=== PATIENT | female | born 1985 | race Caucasian/White ===

== ENCOUNTER 2019-12-30 10:44 | Outpatient (CLI) | payer OTHER, SELFPAY ==
[2019-12-30 10:57] LABS: Basophils Absolute Auto 0.07 K/mm3 (0.00-0.10); Basophils Percent Auto 0.6 % (0.0-1.0); Eosinophils Absolute Auto 0.16 K/mm3 (0.02-0.50); Eosinophils Percent Auto 1.4 % (1.0-6.0); Hemoglobin 12.6 g/dL (12.0-15.0); Immature Granulocyte Absolute 0.06 K/mm3 (0.00-0.00); Immature Granulocyte Percent A 0.5 % (0.0-0.0); Lymphocytes Absolute Auto 3.33 K/mm3 (1.10-4.50); Lymphocytes Percent Auto 29.6 % (18.0-42.0); Mean Corpuscular HGB Conc 32.3 g/dL (32.0-36.0); Mean Corpuscular Hemoglobin 26.7 pg (27.0-31.0); Mean Corpuscular Volume 82.6 fL (78.0-102.0); Mean Platelet Volume 8.7 fl (9.2-11.8); Monocytes Absolute Auto 0.42 K/mm3 (0.10-0.90); Monocytes Percent Auto 3.7 % (2.0-11.0); Neutrophils Absolute Auto 7.2 K/mm3 (1.7-7.2); Neutrophils Percent Auto 64.2 % (50.0-70.0); Platelet Count Result 348 K/mm3 (150-420); Red Blood Count 4.72 M/mm3 (4.20-5.40); Red Cell Distribution Width 13.2 % (11.6-14.4); White Blood Count 11.3 K/mm3 (4.8-10.8)
[2019-12-30 11:27] LABS: Add Urine Microscopic? YES; Appearance Urine Clear (Clear); Bilirubin Urine Negative (Negative); Blood Urine Negative (Negative); Color Urine Yellow (Yellow); Glucose Urine UA Negative (Negative); Ketones Urine Negative (Negative); Leukocyte Esterase Ur Negative (Negative); Nitrate Urine Negative (Negative); Protein Urine Negative (Negative); Specific Grav Ur 1.015 (1.010-1.020); pH Urine 8.5 (5.0-8.0)
[2019-12-30 11:44] LABS: RBC Urine 0-2 /hpf (0-2)
[2019-12-30 11:45] LABS: Bacteria Urine 4+ /hpf; Squamous Epithelial Cell Urine Few /hpf (Few)
[2019-12-30 11:50] LABS: Alanine Aminotransferase 35 U/L (14-59); Albumin Level 3.7 g/dL (3.4-5.0); Alkaline Phosphatase 90 U/L (46-116); Anion Gap 8 mmol/L (8-16); Aspartate Amino Transferase 14 U/L (15-37); Bilirubin,Total 0.4 mg/dL (0.00-1.00); Blood Urea Nitrogen 13 mg/dL (7-18); Calcium 8.9 mg/dL (8.5-10.1); Carbon Dioxide 27 mmol/L (21-32); Chloride 104 mmol/L (98-108); Cholesterol 221 mg/dL (0-200); Estimated Glomerular Filt Rate > 60; Glucose 114 mg/dL (70-99); HDL Direct 60 mg/dL (40-60); LDL Cholesterol Calculated 148 mg/dL (<130); Osmolality Calculated 289 mOsm/kg (285-295); Potassium 4.3 mmol/L (3.5-5.1); Sodium 139 mmol/L (136-145); Thyroid Stimulating Hormone 0.92 uIU/mL (0.36-3.74); Total Protein 7.1 g/dL (6.4-8.2); Triglycerides 67 mg/dL (0-150)
[2019-12-30 16:39] LABS: Hemoglobin A1C 5.2 % (<5.7)
== END 2019-12-30 10:45 | disposition home or self-care (01) ==
LOC: CHSLAB 10:46
PROVIDERS: PCP Internal Medicine; Visit Provider Internal Medicine
DX: E78.5 Hyperlipidemia, unspecified (principal); I10 Essential (primary) hypertension; F32.9 Major depressive disorder, single episode, unspecified; R73.01 Impaired fasting glucose
CPT/HCPCS: 36415; 80053; 80061; 81001; 83036; 84443; 85025

== ENCOUNTER 2020-01-12 10:28 | Outpatient (CLI) | payer OTHER, SELFPAY ==
--- NOTE | ~2020-01-12 | XR_ITS ---
XR foot RT min 3V DATE: 01/12/2020 10:56 INDICATION: Right first metatarsophalangeal joint pain, medial foot pain. No known injury. TECHNIQUE: 4 views COMPARISON: None FINDINGS: Mild plantar calcaneal enthesopathy. No fracture or dislocation, periosteal reaction or bone destruction. Mild hallux valgus and bunion deformity. No fracture or dislocation, periosteal reaction or bone destruction. IMPRESSION: Mild plantar calcaneal enthesopathy Reviewed, dictated and finalized at location A.
[2020-01-12 10:40] LABS: Basophils Absolute Auto 0.05 K/mm3 (0.00-0.10); Basophils Percent Auto 0.6 % (0.0-1.0); Eosinophils Absolute Auto 0.19 K/mm3 (0.02-0.50); Eosinophils Percent Auto 2.4 % (1.0-6.0); Hematocrit 38.9 % (35.0-49.0); Hemoglobin 12.7 g/dL (12.0-15.0); Immature Granulocyte Absolute 0.04 K/mm3 (0.00-0.00); Immature Granulocyte Percent A 0.5 % (0.0-0.0); Lymphocytes Absolute Auto 3.09 K/mm3 (1.10-4.50); Lymphocytes Percent Auto 39.6 % (18.0-42.0); Mean Corpuscular HGB Conc 32.6 g/dL (32.0-36.0); Mean Corpuscular Hemoglobin 26.7 pg (27.0-31.0); Mean Corpuscular Volume 81.9 fL (78.0-102.0); Mean Platelet Volume 8.5 fl (9.2-11.8); Monocytes Absolute Auto 0.35 K/mm3 (0.10-0.90); Monocytes Percent Auto 4.5 % (2.0-11.0); Neutrophils Absolute Auto 4.1 K/mm3 (1.7-7.2); Neutrophils Percent Auto 52.4 % (50.0-70.0); Platelet Count Result 320 K/mm3 (150-420); Red Blood Count 4.75 M/mm3 (4.20-5.40); Red Cell Distribution Width 13.2 % (11.6-14.4); White Blood Count 7.8 K/mm3 (4.8-10.8)
[2020-01-12 11:28] LABS: CRP 0.8 mg/dL (0.0-0.9); Uric Acid 3.2 mg/dL (2.6-6.0)
== END 2020-01-12 10:29 | disposition home or self-care (01) ==
PROVIDERS: PCP Internal Medicine; Visit Provider Internal Medicine
DX: M25.571 Pain in right ankle and joints of right foot (principal)
CPT/HCPCS: 36415; 73630; 84550; 85025; 86140

== ENCOUNTER 2020-03-06 10:16 | Outpatient (CLI) | payer OTHER, SELFPAY ==
[2020-03-06 10:30] LABS: Basophils Absolute Auto 0.08 K/mm3 (0.00-0.10); Basophils Percent Auto 0.9 % (0.0-1.0); Eosinophils Percent Auto 2.2 % (1.0-6.0); Hematocrit 39.4 % (35.0-49.0); Hemoglobin 12.7 g/dL (12.0-15.0); Immature Granulocyte Absolute 0.03 K/mm3 (0.00-0.00); Immature Granulocyte Percent A 0.3 % (0.0-0.0); Lymphocytes Absolute Auto 3.39 K/mm3 (1.10-4.50); Lymphocytes Percent Auto 36.5 % (18.0-42.0); Mean Corpuscular HGB Conc 32.2 g/dL (32.0-36.0); Mean Corpuscular Hemoglobin 26.5 pg (27.0-31.0); Mean Corpuscular Volume 82.3 fL (78.0-102.0); Mean Platelet Volume 8.5 fl (9.2-11.8); Monocytes Absolute Auto 0.41 K/mm3 (0.10-0.90); Monocytes Percent Auto 4.4 % (2.0-11.0); Neutrophils Absolute Auto 5.2 K/mm3 (1.7-7.2); Neutrophils Percent Auto 55.7 % (50.0-70.0); Platelet Count Result 346 K/mm3 (150-420); Red Blood Count 4.79 M/mm3 (4.20-5.40); White Blood Count 9.3 K/mm3 (4.8-10.8)
[2020-03-06 11:48] LABS: Alanine Aminotransferase 32 U/L (14-59); Albumin Level 3.7 g/dL (3.4-5.0); Alkaline Phosphatase 99 U/L (46-116); Anion Gap 11 mmol/L (8-16); Aspartate Amino Transferase 13 U/L (15-37); Bilirubin,Total 0.3 mg/dL (0.00-1.00); Blood Urea Nitrogen 16 mg/dL (7-18); Calcium 9.1 mg/dL (8.5-10.1); Carbon Dioxide 27 mmol/L (21-32); Chloride 105 mmol/L (98-108); Estimated Glomerular Filt Rate > 60; Glucose 95 mg/dL (70-99); Osmolality Calculated 297 mOsm/kg (285-295); Potassium 4.3 mmol/L (3.5-5.1); Sodium 143 mmol/L (136-145); Total Protein 7.3 g/dL (6.4-8.2)
== END 2020-03-06 10:17 | disposition home or self-care (01) ==
LOC: CHSLAB 10:17
PROVIDERS: PCP Internal Medicine; Visit Provider Internal Medicine
DX: Z01.818 Encounter for other preprocedural examination (principal)
CPT/HCPCS: 36415; 80053; 85025

== ENCOUNTER 2020-07-05 22:47 | Inpatient (IN) | payer OTHER, SELFPAY ==
--- NOTE | ~2020-07-05 | XR_ITS ---
EXAMINATION: XR chest 1V portable DATE: 07/05/2020 23:20 INDICATION: Fever and cough. TECHNIQUE: A single frontal view of the chest was obtained. COMPARISON: Chest 2 views 10/25/2016 FINDINGS: There are airspace opacities in right mid lung zone and left lower lung zone. No pleural ef fusion or pneumothorax. The heart size is normal. IMPRESSION: 1. Airspace opacities in right mid lung zone and left lower lung zone, consistent with pneumonia. Reviewed, dictated and finalized at location A. IMPRESSION: 1. Airspace opacities in right mid lung zone and left lower lung zone, consiste nt with pneumonia.
--- NOTE | ~2020-07-05 | CT_ITS ---
EXAMINATION: CTA chest PE protocol DATE: 07/06/2020 01:44 INDICATION: Dyspnea. Positive d-dimer. COVID positive. TECHNIQUE: Computed tomography (CT) pulmonary angiogram of the chest was performed with 100 mL Omnipa que-350 intravenous contrast. Additional 3D reconstructions utilizing coronal maximum intensity proje ction (MIP) were performed. Automated exposure control and iterative reconstruction technique were em ployed. The dose-length product was 652.18 mGy-cm. COMPARISON: None FINDINGS: Good contrast opacification of the pulmonary arteries. There is mild streak artifact from dense contr ast in the superior vena cava and right atrium. Minimal scattered respiratory motion artifact which d oes not limit evaluation. No pulmonary embolism. Region of consolidation with air bronchograms in the right upper lobe. Additional less confluent patchy airspace opacities in the right upper lobe, lingu la and left lower lobe. Calcified nodule at the lingula consistent with old granulomatous disease. No pulmonary edema or pleural effusion. Heart size is normal. No pericardial effusion. Thoracic aorta i s normal in caliber with no dissection. Likely reactive mild right hilar and mediastinal lymphadenopa thy. Small sliding-type hiatal hernia. Mild thoracic dextrocurvature with minimal spondylosis. IMPRESSION: 1. No pulmonary embolism. 2. Bilateral multifocal pneumonia, most prominent in the right upper lobe. 3. Small sliding-type hiatal hernia. Reviewed, dictated and finalized at location A.
--- NOTE | 2020-07-05 23:00 | ED.SOB ---
HPI - SOB/Dyspnea General Chief Complaint: Headache Stated Complaint: covid+, trouble breathing, headache Time Seen by Provider: 07/05/20 23:01 Source: patient Mode of arrival: ambulatory Limitations: no limitations History of Present Illness HPI Narrative: 34-year-old woman comes in today complaining of but cough and feeling horribly starting 6 days ago and a fever starting 4 days ago. She has got progressively worse shortness of breath and this evening at home her sats were 88%. She was tested 2 days ago for COVID by her primary care doctor and is positive by PCR. She complains of poor intake, poor appetite, headache, body aches and fatigue. She denies vomiting or diarrhea, chest pain, abdominal pain, leg swelling or calf tenderness. She has had the influenza vaccine this season however she has not had the COVID vaccine. She denies history of smoking or lung disease. MD elicited complaint: shortness of breath and cough Onset (ago): day(s) (6) Timing: constant and progressively worsening Severity: moderate Relieving factors: nothing Associated symptoms: fever and cough Treatment prior to arrival: none Related Data Home oxygen amount: none Home Medications Medication Instructions Recorded Confirmed citalopram 40 mg PO HS 07/05/20 07/05/20 methylprednisolone See Rx Instructions .ROUTE .COMPLEX 07/05/20 07/05/20 verapamil 240 mg PO HS 07/05/20 07/05/20 Allergies Allergy/AdvReac Type Severity Reaction Status Date / Time Sulfa (Sulfonamide Allergy Unknown Verified 07/05/20 23:29 Antibiotics) Review of Systems Constitutional: Constitutional: Denies chills, Reports fatigue and Reports fever(s) Eyes: Eyes: Denies change in vision and Denies photophobia ENT: Denies dysphagia, Denies nasal congestion and Denies sore throat Cardiovascular: Cardiovascular: Denies chest pain and Denies radiating jaw, neck or arm pain Respiratory: Respiratory: Reports chest congestion, Reports cough, Reports dyspnea and Denies wheezing Gastrointestinal: Gastrointestinal: Denies abdominal pain, Denies diarrhea, Denies nausea and Denies vomiting Musculoskeletal: Musculoskeletal: Denies arthralgias and Denies joint swelling Integumentary/Breasts: Skin/Breast: Denies pruritus, Denies erythema and Denies rash Neurologic: Denies vertigo, Denies dizziness, Denies syncope, Denies focal weakness and Denies numbness Hematologic/Lymphatic: Hematologic/Lymphatic: Denies easy bleeding and Denies easy bruising Allergic/Immunologic: Allergic/Immunologic: Denies lip swelling and Denies throat swelling FOR[facility]LY [facility] Past Medical History Medical History (Updated 07/05/20 @ 23:26 by Tanner Amanda MD) Anxiety Surgical History Surgical History (Updated 07/05/20 @ 23:24 by Tanner Amanda MD) H/O tubal ligation History of bunionectomy bilateral History of carpal tunnel surgery bilateral Hx of cholecystectomy Social History Social History (Updated 07/05/20 @ 23:24 by Tanner Amanda MD) Smoking status: Never smoker Alcohol intake: never Substance use: never Living arrangements: with family Gender identity (if verbalized by the patient): Female Exam Const: General: healthy appearing and alert Nutritional Appearance: obese Orientation/consciousness: patient oriented x3 Limitations: no limitations Other: mild acute distress. HENMT: Head: normal to inspection Ears: external ears normal, TM's normal bilaterally and EAC's normal General nose exam: Normal nares present Face and sinus: normal facial exam Mouth: Yes moist mucous membranes Throat: posterior oropharynx normal Eyes: Conjunctivae: conjunctivae normal Pupils: Equal, round and reactive pupils present EOM: EOMs intact bilaterally Resp: Effort & Inspection: not labored, no retractions, tachypneic ( Mildly) and no use of accessory muscles Auscultation: no rales, no rhonchi and wheezes ( Scattered bilateral expiratory) Cardio: Rate: tachycardic Rhyth
--- NOTE | 2020-07-05 23:09 | ECG_ITS ---
Measurements Intervals [place] Rate: 105 P: 24 NM: 157 QRS: 41 QRSD: 88 T: 8 QT: 331 QTc: 438 Interpretive Statements SINUS TACHYCARDIA MINIMAL Q WAVES- INFERIOR LEADS BORDERLINE ST-T WAVE ABNORMALITY- ANTEROLAT/INF LEADS BASELINE WANDER- I, V4-V6 ABNORMAL ECG Electronically Signed On 07-06-2020 7:21:37 CDT by Winston Sanchez D.O.
[2020-07-05 23:10] VITALS: BP 148/87; PULSE 122; RESP 22; TEMP 38.2; O2SAT 94
[2020-07-05 23:23] VITALS: PULSE 107; RESP 26; O2SAT 94
[2020-07-05] MEDS: SODIUM CHLORIDE 0.9% IV 1,000 ML 999 ML IV CONT (23:26)
[2020-07-05] MEDS: ALBUTEROL SULFATE (*SP) INHALER 4 PUFF INHALATION (23:29)
[2020-07-05 23:30] VITALS: PULSE 107; RESP 22; O2SAT 93
[2020-07-05 23:32] VITALS: PULSE 107; RESP 94; O2SAT 25
[2020-07-06] VITALS (13 sets, daily range): BP systolic 106–128; BP diastolic 65–79; PULSE 67–96; RESP 18–22; TEMP 36.1–36.6; O2SAT 87–98; BMI 39.7
[2020-07-06 00:18] LABS: Hematocrit 36.6 % (35.0-49.0); Mean Corpuscular HGB Conc 32.8 g/dL (32.0-36.0); Mean Corpuscular Hemoglobin 26.5 pg (27.0-31.0); Mean Platelet Volume 9.2 fl (9.2-11.8); Platelet Count Result 174 K/mm3 (150-420); Red Blood Count 4.52 M/mm3 (4.20-5.40); Red Cell Distribution Width 13.1 % (11.6-14.4); White Blood Count 2.5 K/mm3 (4.8-10.8)
[2020-07-06 00:27] LABS: INR 1.1; Partial Thromboplastin Time 29.5 SEC (23.90-30.70); Prothrombin Time 11.7 Seconds (9.50-12.10)
[2020-07-06 00:30] LABS: Lactic Acid Reflex 1.2 mmol/L (0.4-2.0)
[2020-07-06 00:40] LABS: Alanine Aminotransferase 36 U/L (14-59); Albumin Level 3.3 g/dL (3.4-5.0); Alkaline Phosphatase 78 U/L (46-116); Anion Gap 11 mmol/L (8-16); Aspartate Amino Transferase 24 U/L (15-37); Bilirubin,Total 0.3 mg/dL (0.00-1.00); Blood Urea Nitrogen 15 mg/dL (7-18); Calcium 7.8 mg/dL (8.5-10.1); Carbon Dioxide 23 mmol/L (21-32); Chloride 98 mmol/L (98-108); Estimated CRCL calculation 85 ml/min; Estimated Glomerular Filt Rate > 60; Glucose 182 mg/dL (70-99); Osmolality Calculated 279 mOsm/kg (285-295); Potassium 3.3 mmol/L (3.5-5.1); Sodium 132 mmol/L (136-145); Total Protein 7.3 g/dL (6.4-8.2)
[2020-07-06] MEDS: ACETAMINOPHEN 500 MG TABLET 1000 MG PO (00:44)
[2020-07-06 00:59] LABS: D Dimer 0.87 mg/L (0.19-0.50)
[2020-07-06 01:00] LABS: Band Neutrophils Percent 0 % (0-6); Basophils Absolute Manual 0.02 K/mm3 (0-0.1); Basophils Percent Manual 1 % (0-1); Eosinophils Percent Manual 0 % (1-6); Lymphocytes Percent Manual 12 % (18-44); Monocytes Absolute Manual 0.02 K/mm3 (0.1-0.90); Monocytes Percent Manual 1 % (3-9); Neutrophils Absolute Manual 2.15 K/mm3 (1.7-7.2); Neutrophils Percent Manual 86 % (46-73); Total Cells Counted 100
[2020-07-06 01:01] LABS: Anisocytosis 1+ (NORMAL); Platelet Estimate Adequate (Adequate); Polychromasia 1+ (NORMAL)
[2020-07-06 01:02] LABS: Microcytosis 1+ (NORMAL)
[2020-07-06 01:03] LABS: Influenza Control Valid (Valid)
[2020-07-06 01:25] LABS: Pregnancy On Board Control Positive; Urine Pregnancy Test Negative
[2020-07-06] MEDS: REMDESIVIR 200 MG/NS 250 ML 200 MG/250 ML BAG 250 MG IVPB (03:42)
[2020-07-06] MEDS: IBUPROFEN 600 MG TABLET PO ×2 (05:34→14:22)
[2020-07-06] MEDS: ALBUTEROL SULFATE (*SP) INHALER 4 PUFF INHALATION ×4 (05:35→21:36)
[2020-07-06] MEDS: DEXAMETHASONE SOD PHOS INJ 4 MG/ML VIAL 6 MG IV PUSH (08:19)
[2020-07-06] MEDS: ENOXAPARIN 40 MG/0.4 ML SYRINGE SUB-Q (08:19)
[2020-07-06 09:28] LABS: Hematocrit 35.6 % (35.0-49.0); Hemoglobin 11.7 g/dL (12.0-15.0); Mean Corpuscular HGB Conc 32.9 g/dL (32.0-36.0); Mean Corpuscular Hemoglobin 26.5 pg (27.0-31.0); Mean Corpuscular Volume 80.7 fL (78.0-102.0); Mean Platelet Volume 9.1 fl (9.2-11.8); Platelet Count Result 172 K/mm3 (150-420); Red Blood Count 4.41 M/mm3 (4.20-5.40); Red Cell Distribution Width 13.1 % (11.6-14.4); White Blood Count 2.2 K/mm3 (4.8-10.8)
[2020-07-06 09:46] LABS: Alanine Aminotransferase 31 U/L (14-59); Albumin Level 3.1 g/dL (3.4-5.0); Alkaline Phosphatase 71 U/L (46-116); Anion Gap 10 mmol/L (8-16); Aspartate Amino Transferase 20 U/L (15-37); Bilirubin,Total 0.2 mg/dL (0.00-1.00); Blood Urea Nitrogen 11 mg/dL (7-18); Calcium 7.8 mg/dL (8.5-10.1); Carbon Dioxide 24 mmol/L (21-32); Chloride 102 mmol/L (98-108); Estimated CRCL calculation 93 ml/min; Estimated Glomerular Filt Rate > 60; Glucose 204 mg/dL (70-99); Osmolality Calculated 287 mOsm/kg (285-295); Potassium 3.9 mmol/L (3.5-5.1); Sodium 136 mmol/L (136-145)
[2020-07-06 09:52] LABS: Total Cells Counted 100
[2020-07-06 09:53] LABS: Band Neutrophils Percent 0 % (0-6); Basophils Percent Manual 0 % (0-1); Eosinophils Percent Manual 0 % (1-6); Lymphocytes Absolute Manual 0.39 K/mm3 (1.1-4.5); Lymphocytes Percent Manual 18 % (18-44); Monocytes Absolute Manual 0.02 K/mm3 (0.1-0.90); Monocytes Percent Manual 1 % (3-9); Neutrophils Absolute Manual 1.78 K/mm3 (1.7-7.2); Neutrophils Percent Manual 81 % (46-73)
[2020-07-06 09:54] LABS: Platelet Estimate Adequate (Adequate)
--- NOTE | 2020-07-06 13:22 | PM.IMHP ---
H&P: HPI History of Present Illness Date/Time: 07/06/20 13:22 Pt states her breathing feels a little better and indicated that her Oxygen was turned down to 1 L/min at about 0930 today and after lunch she is now off of her supplemental oxygen, room air with SpO2 at 95%. Pt states her [place] is almost gone. Pt does not complain of any pain or concerns at this time. Chief Complaint: Fever, Cough, Positive COVID Review of Systems Constitutional: Constitutional: Reports no additional constitutional complaints, Denies chills, Denies fatigue and Denies fever(s) ENT: Reports system reviewed and no additional complaints, except as documented Cardiovascular: Cardiovascular: Reports no additional cardiovascular complaints, Denies chest pain, Denies chest pain at rest and Denies chest pain with activity Respiratory: Respiratory: Reports no additional respiratory complaints and Denies dyspnea Gastrointestinal: Gastrointestinal: Reports no additional gastrointestinal complaints Genitourinary: Genitourinary: Reports no additional female genitourinary complaints Musculoskeletal: Musculoskeletal: Reports no additional musculoskeletal complaints Neurologic: Reports system reviewed and no additional complaints, except as documented Psychiatric: Comments: Admits to Anxiety [facility] Past Medical History Medical History (Updated 07/06/20 @ 13:47 by MICHAEL Laboy) Anxiety Hypertension Surgical History Surgical History H/O tubal ligation History of bunionectomy bilateral History of carpal tunnel surgery bilateral Hx of cholecystectomy Family History Family History (Updated 07/06/20 @ 13:40 by MICHAEL Laboy) Father Acute myocardial infarction Mother COPD (chronic obstructive pulmonary disease) Social History Social History Smoking status: Never smoker Alcohol intake: unknown Substance use: never Living arrangements: with family Gender identity (if verbalized by the patient): Female Spiritual care concerns: No Meds Home Medications and Allergies Home Medications Medication Instructions Recorded Confirmed Type citalopram 40 mg PO HS 07/05/20 07/05/20 History methylprednisolone See Rx Instructions .ROUTE .COMPLEX 07/05/20 07/05/20 History verapamil 240 mg PO HS 07/05/20 07/05/20 History Allergies Allergy/AdvReac Type Severity Reaction Status Date / Time Sulfa (Sulfonamide Allergy Unknown Verified 07/05/20 23:29 Antibiotics) Vital Signs Vital Signs - 24 hr 07/05/20 23:10 07/05/20 23:23 07/05/20 23:30 Temperature 100.8 F H Pulse Rate 122 H 107 H 107 H Respiratory Rate 22 H 26 H 22 H Blood Pressure 148/87 H Pulse Oximetry 94 94 93 07/05/20 23:32 07/06/20 00:30 07/06/20 01:00 Temperature Pulse Rate 107 H 96 96 Respiratory Rate 94 H 20 20 Blood Pressure 126/76 128/78 Pulse Oximetry 25 L 98 96 07/06/20 02:00 07/06/20 02:20 07/06/20 02:47 Temperature Pulse Rate 85 82 82 Respiratory Rate 22 H 22 H 20 Blood Pressure 117/71 122/68 Pulse Oximetry 87 L 97 98 07/06/20 03:05 07/06/20 03:20 07/06/20 08:30 Temperature 97.9 F 97.1 F L Pulse Rate 83 67 Respiratory Rate 22 H 18 Blood Pressure 127/77 114/70 Pulse Oximetry 96 96 95 07/06/20 09:20 07/06/20 10:20 Temperature Pulse Rate Respiratory Rate Blood Pressure Pulse Oximetry 94 92 Exam Const: General: cooperative, comfortable and no acute distress Nutritional Appearance: overweight HENMT: Head: normal to inspection and atraumatic Ears: hearing grossly normal bilaterally General nose exam: Normal external nose present Neck: Neck: normal visual inspection and no JVD Resp: Effort & Inspection: normal respiratory effort, Actively coughing (rare) and not labored Auscultation: clear to auscultation bilaterally Cardio: Rate: regular rate Heart sounds: S1 normal
[2020-07-06] MEDS: LORazepam (*CRX) 0.5 MG TABLET PO (16:30)
[2020-07-07] VITALS (8 sets, daily range): BP systolic 116–146; BP diastolic 60–91; PULSE 72–94; RESP 18–20; TEMP 36.2–38.9; O2SAT 93–96
[2020-07-07] MEDS: IBUPROFEN 600 MG TABLET PO ×3 (00:20→18:36)
--- NOTE | 2020-07-07 00:37 | PC.NURSE ---
pt was tearful and wants to go home, comforted pt, gave pain medication see MAR, belongings and call light within reach, denies any other needs, tele and cont pulse ox on with alarms
--- NOTE | 2020-07-07 05:00 | PC.NURSE ---
pt refused to allow labs to be drawn at this time
[2020-07-07] MEDS: REMDESIVIR 100 MG/NS 250 ML 100 MG/250 ML BAG 250 MG IVPB (05:01)
[2020-07-07] MEDS: ALBUTEROL SULFATE (*SP) INHALER 4 PUFF INHALATION ×4 (06:11→21:26)
[2020-07-07 08:52] LABS: Hematocrit 36.3 % (35.0-49.0); Hemoglobin 11.7 g/dL (12.0-15.0); Mean Corpuscular HGB Conc 32.2 g/dL (32.0-36.0); Mean Corpuscular Hemoglobin 26.4 pg (27.0-31.0); Mean Corpuscular Volume 81.8 fL (78.0-102.0); Mean Platelet Volume 10.3 fl (9.2-11.8); Platelet Count Result 225 K/mm3 (150-420); Red Blood Count 4.44 M/mm3 (4.20-5.40); Red Cell Distribution Width 13.2 % (11.6-14.4); White Blood Count 5.9 K/mm3 (4.8-10.8)
[2020-07-07 09:14] LABS: Anion Gap 8 mmol/L (8-16); Blood Urea Nitrogen 16 mg/dL (7-18); Carbon Dioxide 24 mmol/L (21-32); Chloride 100 mmol/L (98-108); Estimated CRCL calculation 96 ml/min; Estimated Glomerular Filt Rate > 60; Glucose 102 mg/dL (70-99); Osmolality Calculated 275 mOsm/kg (285-295); Sodium 132 mmol/L (136-145)
[2020-07-07 09:17] LABS: Alanine Aminotransferase 28 U/L (14-59)
[2020-07-07] MEDS: ENOXAPARIN 40 MG/0.4 ML SYRINGE SUB-Q (09:20)
[2020-07-07] MEDS: DEXAMETHASONE SOD PHOS INJ 4 MG/ML VIAL 6 MG IV PUSH (09:21)
--- NOTE | 2020-07-07 16:32 | PM.IMPN ---
Progress Note: A&P Assessment and Plan (1) COVID-19: Code(s): U07.1 - COVID-19 Status: Acute Assessment and Plan: 07/06/2020 Pt has Remdesivir, Decadron, Azithromycin, Rocephin, Albuterol, Lovenox, Cardiac and SpO2 monitoring, Supplemental Oxygen PRN, currently room air. 07/07/2020 Continue with above regimen, monitor Pt for SpO2, Respiratory status, [id number] O2 if needed, currently on room air (2) Pneumonia: Code(s): J18.9 - Pneumonia, unspecified organism Status: Acute Assessment and Plan: 07/06/2020 Azithromycin, supplemental O2 PRN, SpO2 monitoring, now room air with SpO2 95% 07/07/2020 Continue with Tx and monitoring, no productive cough (3) Elevated d-dimer: Code(s): R79.89 - Other specified abnormal findings of blood chemistry Status: Acute Assessment and Plan: 07/06/2020 CTA negative for PE, no calf pain or swelling in LE 07/07/2020 Lovenox 40 mg BID (4) Hypertension: Code(s): I10 - Essential (primary) hypertension Status: Acute Assessment and Plan: 07/06/2020 Continue Verapamill 07/07/2020 Continue as above, monitor VS, cardiac monitoring (5) Anxiety: Code(s): F41.9 - Anxiety disorder, unspecified Status: Acute Assessment and Plan: 07/06/2020 Pt states she was on Xanax, This was not reordered however if Pt does experience anxiety I will provide Pt with appropriate medication(s) 07/07/2020 PRN Ativan BID Subjective Date/time seen: 07/07/20 16:32 Pt states she is doing better. However, Pt is quite sad that she is still in the hospital and is wanting to go home. She states she is feeling a bit anxious regarding staying in the hospital. I spoke with her for a while about the regimen for COVID positive Pts and she did come around to agree to staying. now that she knows and understands what is needed with respect to her treatment she is amicable to staying in house for treatment. Pt has no complaints of CP, SOB, Abdominal issues. She does admit to some anxiety, missing her family, making sure her home medications are ordered such as Citalopram and Verapamil. Review of Systems Constitutional: Constitutional: Reports no additional constitutional complaints, Denies chills, Denies fever(s) and Reports headache(s) (states this is improving) ENT: Reports system reviewed and no additional complaints, except as documented, Reports Normal hearing present, Denies vertigo and Denies dizziness Cardiovascular: Cardiovascular: Reports no additional cardiovascular complaints, Denies chest pain, Denies chest pain at rest and Denies chest pain with activity Respiratory: Respiratory: Reports no additional respiratory complaints, Reports cough (occasional) and Denies dyspnea Gastrointestinal: Gastrointestinal: Reports no additional gastrointestinal complaints, Denies abdominal pain, Denies nausea and Denies vomiting Genitourinary: Genitourinary: Reports no additional female genitourinary complaints Musculoskeletal: Musculoskeletal: Reports no additional musculoskeletal complaints, Denies abnormal gait, Denies back pain, Denies muscle cramps and Denies muscle weakness Neurologic: Reports system reviewed and no additional complaints, except as documented, Reports Normal hearing present, Denies vertigo, Denies dizziness and Denies syncope Psychiatric: Psychiatric: Reports no additional psychiatric complaints and Reports anxiety (related to hospitalization and being away from family) Exam Const: General: cooperative, comfortable, no acute distress and anxious (regarding hospitalization and being away from family) Nutritional Appearance: overweight HENMT: Head: normal to inspection and atraumatic Ears: hearing grossly normal bilaterally Neck: Neck: normal visual inspection and no JVD Resp: Effort & Inspection: normal respiratory effort and Actively coughing (bronchospasms with deep breathing) Cardio: Rate: regular rate Heart sounds: S1 normal heart sound present, S2
[2020-07-07] MEDS: CITALOPRAM HYDROBROMIDE 20 MG TABLET 40 MG PO (21:04)
[2020-07-07] MEDS: VERAPAMIL HCL ER 120 MG TABLET 240 MG PO (21:05)
[2020-07-07] MEDS: MELATONIN 5 MG TABLET 10 MG PO (21:05)
[2020-07-07] MEDS: LORazepam (*CRX) 0.5 MG TABLET PO (21:06)
[2020-07-08] VITALS: BP 117/65; PULSE 67; RESP 18; TEMP 36.6; O2SAT 94
--- NOTE | 2020-07-08 02:05 | PC.NURSE ---
pt sleeping, call peoples in reach. respirations even and unlabored.
[2020-07-08 03:49] VITALS: BP 124/65; PULSE 64; RESP 18; TEMP 36.9; O2SAT 94
--- NOTE | 2020-07-08 04:15 | PC.NURSE ---
pt sleeping , left undisturbed. call peoples in reach.
[2020-07-08] MEDS: SODIUM CHLORIDE 0.9% IV 250 ML (04:41)
[2020-07-08] MEDS: REMDESIVIR 100 MG/NS 250 ML 100 MG/250 ML BAG 250 MG IVPB (04:41)
[2020-07-08 05:54] LABS: Alanine Aminotransferase 28 U/L (14-59); Estimated CRCL calculation 91 ml/min; Estimated Glomerular Filt Rate > 60
[2020-07-08 05:56] LABS: BNP < 5.0 pg/mL (0-100)
--- NOTE | 2020-07-08 06:19 | PC.NURSE ---
pt resting comfortably, states best restful night since arrival. call peoples in reach. pt up to bathroom independently.no complaints voiced related to rash to back.
--- NOTE | 2020-07-08 07:12 | PC.NURSE ---
report to dada jaffe
[2020-07-08 08:00] VITALS: BP 115/65; PULSE 64; PULSE 76; RESP 18; TEMP 36.5; O2SAT 94
[2020-07-08] MEDS: ENOXAPARIN 40 MG/0.4 ML SYRINGE SUB-Q (09:23)
[2020-07-08] MEDS: ALBUTEROL SULFATE (*SP) INHALER 4 PUFF INHALATION ×4 (09:26→20:30)
[2020-07-08] MEDS: DEXAMETHASONE SOD PHOS INJ 4 MG/ML VIAL 6 MG IV PUSH (09:26)
--- NOTE | 2020-07-08 10:42 | PM.IMPN ---
Progress Note: A&P Assessment and Plan (1) COVID-19: Code(s): U07.1 - COVID-19 Status: Acute Assessment and Plan: 07/06/2020 Pt has Remdesivir, Decadron, Azithromycin, Rocephin, Albuterol, Lovenox, Cardiac and SpO2 monitoring, Supplemental Oxygen PRN, currently room air. 07/07/2020 Continue with above regimen, monitor Pt for SpO2, Respiratory status, [id number] O2 if needed, currently on room air 07/08/2020 Continue as above, Renal function remains good, no increase in liver enzymes (2) Pneumonia: Code(s): J18.9 - Pneumonia, unspecified organism Status: Acute Assessment and Plan: 07/06/2020 Azithromycin, supplemental O2 PRN, SpO2 monitoring, now room air with SpO2 95% 07/07/2020 Continue with Tx and monitoring, no productive cough 07/08/2020 Lungs clear aside from cough with deep breath, has Albuterol, continue to monitor SpO2 and VS (3) Elevated d-dimer: Code(s): R79.89 - Other specified abnormal findings of blood chemistry Status: Acute Assessment and Plan: 07/06/2020 CTA negative for PE, no calf pain or swelling in LE 07/07/2020 Lovenox 40 mg BID 07/08/2020 no changes at this time, no calf tenderness or increased SOB/WOB (4) Hypertension: Code(s): I10 - Essential (primary) hypertension Status: Acute Assessment and Plan: 07/06/2020 Continue Verapamill 07/07/2020 Continue as above, monitor VS, cardiac monitoring 07/08/2020 VSS, continue as above, as well as monitoring, no changes need to be made at this time (5) Anxiety: Code(s): F41.9 - Anxiety disorder, unspecified Status: Acute Assessment and Plan: 07/06/2020 Pt states she was on Xanax, This was not reordered however if Pt does experience anxiety I will provide Pt with appropriate medication(s) 07/07/2020 PRN Ativan BID 07/08/2020 Pt stated this did help her yesterday, will continue with this regimen at this time Subjective Date/time seen: 07/08/20 10:42 Pt states she slept well last night though she is still a little tired this AM. She says her breathing is good. I did notice yesterday her SpO2 decreased to 88% and according to the Pt this is likely when she was walking to the restroom and back. Pt has no complaints today denying CP, Abdominal issues, skin issues, changes in appetite, no [place] today, no neurologic issues like numbness or tingling. Review of Systems Review of Systems: All systems reviewed & are unremarkable except as noted in HPI and below Exam Const: General: cooperative, comfortable and no acute distress Nutritional Appearance: overweight HENMT: Head: normal to inspection and atraumatic Ears: hearing grossly normal bilaterally Neck: Neck: normal visual inspection, no lymphadenopathy and no JVD Resp: Effort & Inspection: normal respiratory effort Auscultation: clear to auscultation bilaterally (does have cough with deep breathing, non-productive) Cardio: Jugular venous distension: no JVD Rate: regular rate Heart sounds: S1 normal heart sound present, S2 normal heart sound present, no click, no gallops, no murmurs and no rubs GI: GI Palp: Yes Soft to palpation and No Tenderness to palpation present (GI) Auscultation: normal bowel sounds Skin: General skin exam: normal color and turgor normal Lesions: no lesions Rashes: no rashes Trauma: no lacerations or abrasions Neuro: General: oriented to person, oriented to place, oriented to time, tone normal and no focal motor deficits Cranial nerves: Yes CN's II-XII intact bilaterally (grossly intact) Cognition (Neuro): normal cognition Speech: normal speech Gait exam (Neuro): Normal gait present Extrem: General: normal to inspection, full ROM, no pedal edema and no calf tenderness Psych: Appearance: grossly normal Mental Status: mental status grossly normal Affect: normal affect Attitude: cooperative Thought process: Normal thought process present Thought content: Yes Normal thought content present Objective Data Vital Signs Vital S
[2020-07-08 12:00] VITALS: BP 118/77; PULSE 72; RESP 20; TEMP 36.4; O2SAT 94
[2020-07-08 16:00] VITALS: BP 114/74; PULSE 70; RESP 18; TEMP 36.1; O2SAT 94
[2020-07-08 20:00] VITALS: BP 124/68; PULSE 67; RESP 20; TEMP 36.4; O2SAT 96
[2020-07-08] MEDS: CITALOPRAM HYDROBROMIDE 20 MG TABLET 40 MG PO (21:27)
[2020-07-08] MEDS: VERAPAMIL HCL ER 120 MG TABLET 240 MG PO (21:27)
[2020-07-09] VITALS: BP 102/54; PULSE 70; RESP 20; TEMP 36.6; O2SAT 93
[2020-07-09 04:00] VITALS: BP 111/62; PULSE 70; RESP 20; TEMP 36.4; O2SAT 96
[2020-07-09 04:26] VITALS: PULSE 60
[2020-07-09] MEDS: REMDESIVIR 100 MG/NS 250 ML 100 MG/250 ML BAG 250 MG IVPB (05:00)
[2020-07-09] MEDS: ALBUTEROL SULFATE (*SP) INHALER 4 PUFF INHALATION ×3 (06:30→14:29)
[2020-07-09] MEDS: LORazepam (*CRX) 0.5 MG TABLET PO (06:52)
[2020-07-09 08:00] VITALS: BP 114/66; PULSE 60; RESP 18; TEMP 36.5; O2SAT 96
[2020-07-09] MEDS: ENOXAPARIN 40 MG/0.4 ML SYRINGE SUB-Q (09:37)
[2020-07-09] MEDS: DEXAMETHASONE SOD PHOS INJ 4 MG/ML VIAL 6 MG IV PUSH (09:37)
[2020-07-09 12:00] VITALS: BP 117/76; PULSE 70; RESP 18; TEMP 36.4; O2SAT 95
--- NOTE | 2020-07-09 15:10 | PM.DS ---
DS: Admitting Diagnosis Admitting Diagnosis Admitting Diagnosis: COVID, Pneumonia <MICHAEL Laboy - Last Filed: 07/09/20 15:19> DS: Discharge Diagnosis Discharge Diagnosis (1) COVID-19: Code(s): U07.1 - COVID-19 <MICHAEL Laboy - Last Filed: 07/09/20 15:19> Status: Acute <MICHAEL Laboy - Last Filed: 07/09/20 15:19> Assessment and Plan: 07/06/2020 Pt has Remdesivir, Decadron, Azithromycin, Rocephin, Albuterol, Lovenox, Cardiac and SpO2 monitoring, Supplemental Oxygen PRN, currently room air. 07/07/2020 Continue with above regimen, monitor Pt for SpO2, Respiratory status, [id number] O2 if needed, currently on room air 07/08/2020 Continue as above, Renal function remains good, no increase in liver enzymes 07/09/2020 Pt states that she wants to go home, she claims she is feeling better, she misses her family, She has improved with her breathing, cough is less, she has been on Room air for the past 1-2 days. Will send home with Albuterol, Cepacol, and Robitussin DM <MICHAEL Laboy - Last Filed: 07/09/20 15:19> (2) Pneumonia: Code(s): J18.9 - Pneumonia, unspecified organism <MICHAEL Laboy - Last Filed: 07/09/20 15:19> Status: Acute <MICHAEL Laboy - Last Filed: 07/09/20 15:19> Assessment and Plan: 07/06/2020 Azithromycin, supplemental O2 PRN, SpO2 monitoring, now room air with SpO2 95% 07/07/2020 Continue with Tx and monitoring, no productive cough 07/08/2020 Lungs clear aside from cough with deep breath, has Albuterol, continue to monitor SpO2 and VS 07/09/2020 Pt has had 5 days of Azithromycin, as noted above breathing improved. <MICHAEL Laboy - Last Filed: 07/09/20 15:19> (3) Elevated d-dimer: Code(s): R79.89 - Other specified abnormal findings of blood chemistry <Murray Wing APN-C - Last Filed: 07/09/20 15:19> Status: Acute <Murray Wing SOCIAL SERVICE AGENCY DIRECTOR-C - Last Filed: 07/09/20 15:19> Assessment and Plan: 07/06/2020 CTA negative for PE, no calf pain or swelling in LE 07/07/2020 Lovenox 40 mg BID 07/08/2020 no changes at this time, no calf tenderness or increased SOB/WOB 07/09/2020 ... <Murray Wing APN-C - Last Filed: 07/09/20 15:19> (4) Hypertension: Code(s): I10 - Essential (primary) hypertension <Murray Wing APN-C - Last Filed: 07/09/20 15:19> Status: Acute <Murray Wing APN-C - Last Filed: 07/09/20 15:19> Assessment and Plan: 07/06/2020 Continue Verapamill 07/07/2020 Continue as above, monitor VS, cardiac monitoring 07/08/2020 VSS, continue as above, as well as monitoring, no changes need to be made at this time 07/09/2020 VSS, Pt to continue home regimen on DC <Murray Wing APN-C - Last Filed: 07/09/20 15:19> (5) Anxiety: Code(s): F41.9 - Anxiety disorder, unspecified <Murray Wing APN-C - Last Filed: 07/09/20 15:19> Status: Acute <Murray Wing SOCIAL SERVICE AGENCY DIRECTOR-C - Last Filed: 07/09/20 15:19> Assessment and Plan: 07/06/2020 Pt states she was on Xanax, This was not reordered however if Pt does experience anxiety I will provide Pt with appropriate medication(s) 07/07/2020 PRN Ativan BID 07/08/2020 Pt stated this did help her yesterday, will continue with this regimen at this time 07/09/2020 Pt is only anxious about returning home to be with her family, she has been doing well, no anxiolytics on DC Pt will have to see her PCP if she believes she needs Tx for this <MICHAEL Laboy - Last Filed: 07/09/20 15:19> DS: Summary Hospital Course Hospital Course: Breathing improved, now on Room Air, slight cough with deep breathing. <MICHAEL Laboy - Last Filed: 07/09/20 15:19> Time Spent with Patient Time attestation: Total time spent providing and/or coordinating discharge services: < 30 minutes <MICHAEL Laboy - Last Filed: 07/09/20 15:19> Exam Const: General: cooperative, comfortable,
[2020-07-09 16:00] VITALS: BP 116/68; PULSE 76; RESP 18; TEMP 36.4; O2SAT 94
--- NOTE | 2020-07-09 17:42 | PC.NURSE ---
Patient discharged to home, ambulated out of hospital to family's vehicle. All belongings sent with patient
--- NOTE | 2020-07-12 13:50 | PC.NURSE ---
Pt states she received and understood her discharge instruction. Pt has no other comments.
== END 2020-07-09 16:15 | disposition home or self-care (01) | DRG 137 ==
LOC: CHSED 23:26 → CHS2ND 07-06 08:39
PROVIDERS: Emergency Medicine; Nurse Practitioner Family; Admitting Provider Emergency Medicine; Emergency Provider Emergency Medicine; PCP Internal Medicine; Visit Provider Emergency Medicine
DX: U07.1 COVID-19 (principal); J12.82 Pneumonia due to coronavirus disease 2019; I10 Essential (primary) hypertension; F41.9 Anxiety disorder, unspecified; Z90.49 Acquired absence of other specified parts of digestive tract
CPT/HCPCS: 36415; 71045; 71275; 80048; 80053; 81025; 82565; 83605; 83880; 84460; 85025; 85027; 85380; 85610; 85730; 87040; 87804; 93005; 94640; 96361; 96365; 96367; 96372; 96374; 96375; 99285; A9270; G0378; G0379; J0456; J0696; J1100; J1650; J7030; J7050; Q9967

== ENCOUNTER 2020-10-31 08:10 | Outpatient (CLI) | payer OTHER, SELFPAY ==
--- NOTE | ~2020-10-31 | XR_ITS ---
EXAMINATION: XR chest 2V 10/31/2020 08:35 INDICATION: TB screening. Shortness of breath. PROCEDURE: 2 view chest COMPARISON: Comparison to multiple prior studies sequentially, with oldest reviewed study dated 07/2011. FINDINGS: The lungs are clear. The cardiomediastinal silhouette is within normal limits. There are no pleural effusions. There is no pneumothorax suspected. IMPRESSION: 1: NO ACUTE CARDIOPULMONARY DISEASE. Reviewed, dictated and finalized at location A.
== END 2020-10-31 08:11 | disposition home or self-care (01) ==
LOC: CHSIMG 08:13
PROVIDERS: PCP Internal Medicine; Visit Provider Internal Medicine
DX: Z11.1 Encounter for screening for respiratory tuberculosis (principal)
CPT/HCPCS: 71046

== ENCOUNTER 2024-01-27 10:46 | Outpatient (CLI) | payer BC, SELFPAY ==
--- NOTE | ~2024-01-27 | XR_ITS ---
[id number]_[id number] Ordering provider: John Cardoza MD History: . NECK PAIN,RT POSTERIOR NECK LUMP,[place] . Comparison: None. FINDINGS: VERTEBRAL BODIES: Normal height and alignment. No visible fracture or subluxation. The dens is intact . DISK SPACES: Well maintained. PARASPINOUS SOFT TISSUES: No prevertebral soft tissue swelling. IMPRESSION: No acute osseous abnormality cervical spine. Reviewed, dictated and finalized at location A.
== END 2024-01-27 10:47 | disposition home or self-care (01) ==
PROVIDERS: PCP Internal Medicine; Visit Provider Internal Medicine
DX: R51.9 Headache, unspecified (principal); M54.2 Cervicalgia
CPT/HCPCS: 72040

== ENCOUNTER 2024-02-28 09:04 | Outpatient (CLI) | payer BC, SELFPAY ==
--- NOTE | ~2024-02-28 | MR_ITS ---
EXAMINATION: MR brain/brain stem wo con DATE: 02/28/2024 09:40 INDICATION: Daily headaches. Chronic traumatic brain injury. TECHNIQUE: Magnetic resonance imaging (MRI) of the brain and brainstem was performed without intraven ous contrast. Sequences included sagittal and axial T1-weighted SE, axial diffusion-weighted FS SE, a xial T2*-weighted GRE, axial T2-weighted FLAIR, and axial T2-weighted FSE. Postcontrast axial and cor onal T1-weighted SE was obtained. Apparent diffusion coefficient (ADC) maps were created. COMPARISON: None. FINDINGS: Small region of encephalomalacia at the inferior anteromedial aspect of the bilateral frontal lobes, right greater than left and at the anterior right temporal lobe with distribution most suggestive of sequela of old trauma and consistent with the provided clinical history. There are no areas of restri cted diffusion to suggest acute infarction. No intracranial hemorrhage or abnormal intracranial mass lesion. Several small foci of nonspecific increased T2-weighted signal intensity in the cerebral whit e matter with number mildly disproportionate for age. There are no intraparenchymal signal abnormalit ies seen on the other pulse sequences. The ventricles are symmetric and normal in size. There are no abnormal extra-axial fluid collections. Flow voids are seen in the cerebral arteries on the T2-weight ed sequences consistent with their expected patency. Mild mucoperiosteal thickening at the bilateral ethmoid sinuses. Visualized orbits and soft tissues are unremarkable. IMPRESSION: 1. Small region of encephalomalacia at the anteroinferior aspect of the bilateral frontal lobes and a t the anterior right temporal lobe likely sequela of chronic traumatic brain injury. No acute intracr anial process. 2. Mild disproportionate for age nonspecific cerebral white matter disease. The differential diagnosi s includes sequela of traumatic brain injury, premature chronic small vessel ischemic disease (especi ally if the patient has cardiovascular risk factors), demyelinating disease such as multiple sclerosi s, drug abuse, vasculitis, or reactive astrocytosis (gliosis) secondary to other nonspecific etiology . Reviewed, dictated and finalized at location A. NGUAL EXECUTIVE ASSISTANT IMPRESSION: 1. Small region of encephalomalacia at the anteroinferior aspect of the bilater al frontal lobes and at the anterior right temporal lobe likely sequela of rate clerk ck traumatic brain injury. No acute intracranial process. 2. Mild disproportionate for age nonspecific cerebral white matter disease. The differential diagnosis includes sequela of traumatic brain injury, premature c hronic small vessel ischemic disease (especially if the patient has cardiovascu lar risk factors), demyelinating disease such as multiple sclerosis, drug abuse , vasculitis, or reactive astrocytosis (gliosis) secondary to other nonspecific etiology.
== END 2024-02-28 09:05 | disposition home or self-care (01) ==
LOC: CHSIMG 09:05
PROVIDERS: PCP Internal Medicine; Visit Provider Internal Medicine
DX: R51.9 Headache, unspecified (principal); G93.89 Other specified disorders of brain; R90.82 White matter disease, unspecified
CPT/HCPCS: 70551

== ENCOUNTER 2024-07-01 21:54 | Emergency (ER) | payer BC, SELFPAY ==
--- OUTSIDE RECORDS SUMMARY | 2024-07-01 21:56 | XMS_ITS | Encounter Summary ---
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 Gender Identity Not on file Sexual Orientation Not on file documented as of this encounter Plan of Treatment Not on file documented as of this encounter Visit Diagnoses Not on filedocumented in this encounter Additional Health Concerns Infection Onset Date Last Indicated Resolved Time COVID-19 Rule Out 03/07/2020 03/07/2020 03/08/2020 11:16 PM EXTRUSION DIE CORRECTOR documented as of this encounter Care Teams Collar Baster Jumpbasting Relationship Specialty Start Date End Date John Cardoza MD [address] [place] [address] PCP - General INTERNAL MEDICINE 09/11/18 documented as of this encounter
--- OUTSIDE RECORDS SUMMARY | 2024-07-01 21:56 | XMS_ITS | Referral Summary ---
Author Organization [facility] Address [address] [place] [id number] Care Team Providers Care Electric Arc Welder Name Role Phone Zak Dela Cruz MD Primary Care Provider Allergies No known active allergies Medications acetaminophen (TYLENOL) 325 mg tablet 325 mg. 0 0 7 Active Additional Information Patient not taking.Reported on 07/04/2017 LORazepam (ATIVAN) 1 mg tabletIndicatio ns:Anxiety Take 1 tablet (1 mg total) by mouth 2 (two) times a day as needed for anxiety. 60 tablet 5 7 Active Additional Information Patient taking differently:1 mg oral 2 times daily PRN, anxiety,Taking as needed, Reported on 07/04/2017 citalopram (CeleXA) 20 mg tablet TAKE 1/2 TABLET BY MOUTH ONCE DAILY FOR 7 DAYS, THEN INCREASE TO 1 TABLET DAILY 30 tablet 11 7 Active lisinopril (PRINIVIL,ZESTR [place]) 10 mg tablet TAKE 1 TABLET BY ORAL ROUTE EVERY DAY 30 tablet 11 7 Active diclofenac (CATAFLAM) 50 mg tablet Take 50 mg by mouth 3 (three) times a day. Active cyclobenzaprine (FLEXERIL) 10 mg tablet Take 10 mg by mouth 3 (three) times a day as needed for muscle spasms. Active Active Problems Problem Noted Date Diagnosed Date Back strain 07/04/2017 Assessment & Plan (07/04/2017 1:29 PM CDT): Recommended continuing diclofenac t.i.d. with food for the next week and a half along with the use of cyclobenzaprine t.i.d. p.r.n. certainly educating patient that this is only to be taken for short time frame and also the application of heat/ice whichever helps more and stretching was also advised. I did advise her she can go ahead stay off work on Friday, as requested, to return back to work end of next week certainly as tolerated. Certainly will follow up with her regarding testings that were completed as it only appears to have been x-ray, indicating need for additional management based upon review. Follow-up as needed regarding condition Acute non-recurrent pansinusitis 12/16/2016 Assessment & Plan (12/16/2016 11:34 AM CDT): Recommend humidification fluids and rest. Tylenol/ibuprofen prn fever. Take antibiotic as directed. Dose, use and potential side effects of medication discussed with patient. Patient verbalized understanding and is in agreement with the plan of care. Patient is to contact the office with any change in, worsening or non-improvement in condition. Patient was encouraged to take a daily probiotic, yogurt or capsule, while on the antibiotic. Acute serous otitis media, left ear 12/16/2016 Assessment & Plan (12/16/2016 11:34 AM CDT): Tylenol/ibuprofen prn fever/ear ache. Take antibiotic as directed. Dose, use and potential side effects of medication discussed with patient. Patient verbalized understanding and is in agreement with the plan of care. Patient is to contact the office with any change in, worsening or non-improvement in condition. Patient was encouraged to take a daily probiotic, yogurt or capsule, while on the antibiotic. Asymptomatic microscopic hematuria 10/31/2016 Assessment & Plan (10/31/2016 12:25 PM CDT): Patient will present to the lab for urine specimen. This will be sent for urinalysis with reflex to microscopy and culture. Further direction pending results. She should anticipate a cough for me to review these results within 3 days of having testing completed. Anxiety 10/31/2016 Assessment & Plan (10/31/2016 12:25 PM CDT): Patient will continue Celexa 20 mg daily as previously prescribed. The she was provided a refill on her lorazepam for p.r.n. use. Of course we discussed dose, use, and potential side effect of medication. We discussed potential addictive this of this medication. She was encouraged to use this very sparingly. She is aware this can be habit forming. Calculus of gallbladder 06/11/2016 Overview (08/30/2016): Gallstones Depression 01/31/2015 Overview (07/10/2016): DEPRESSIVE DISORDER NEC Human papilloma virus (HPV) infection 01/06/2013 Overview (07/12/2016): High risk HPV infection Attention deficit disorder of adult with hyperac tivity 07/18/2009 Overview (07/10/2016): Attention deficit disorder of adult Cephalalgia 11/01/2008 Immunizations Immunization Administration Dates Next Due Hep B Vaccine 06/12/2010 Influenza, Quadrivalent, Split, Intramuscular Influenza, Trivalent, IM (MDV) 01/10/2009 MMR 06/12/2010 Td, adsorbed 06/12/2010 Social History Tobacco Use Types Packs/Day Years Used Date Smoking Tobacco: Never Smokeless Tobacco: Never Alcohol Use Standard Drinks/Week Comments No 0 (1 standard drink = 0.6 oz pur e alcohol) Comments No Sex and Gender Information Value Date Recorded Sex Assigned at Not on file 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 Gender Identity Not on file Sexual Orientation Not on file Last Filed Vital Signs Vital Sign Reading Time Taken Comments Blood Pressure 112/68 07/04/2017 1:00 PM CDT Pulse 76 07/04/2017 1:00 PM CDT Temperature 36.9 C (98.5 F) 07/04/2017 1:00 PM CDT Respiratory Rate 16 07/04/2017 1:00 PM CDT Oxygen Saturation - - Inhaled Oxygen Concentration - - Weight 93.4 kg (206 lb) 07/04/2017 1:00 PM CDT Height 157.5 cm (5' 2 ) 06/30/2017 2:22 PM CDT Body Mass Index 37.68 06/30/2017 2:22 PM CDT Plan of Treatment Not on file Insurance IDPA Care Teams Electric Arc Welder Relationship Specialty Start Date End Date Zak Dela Cruz MD PCP - General 07/05/16
--- OUTSIDE RECORDS SUMMARY | 2024-07-01 21:56 | XMS_ITS | Clinical Summary ---
Author Organization [facility] Address [address] [place] [address] Care Team Providers Care Corporate Librarian Name Role Phone Unavailable Primary Care Provider Unavailabl e Source Comments [facility],non-owned Affiliates and Associated Physician Practices is amultiple site organization consisting of ambulatory clinics and hospital sitesin [place], [place], [place] and [place]. This disclosure is being madepursuant to the Care Everywhere program and may not contain all information available regarding this patient. Last updated 17.[facility] [employer] Allergies Active Allergy Reactions Criticality Noted Date Comments Sulfa Drugs Itching High 08/18/2017 Medications * Be aware that medications may not be up to date on this document. Alwaysverify current medications with the patient. Medication Sig Dispensed Refills Start Date End Date Status lisinopril (PRINIVIL; ZESTRIL) 10 MG tablet Take 10 mg by mouth at bedtime 08/12/2017 Active LORazepam (ATIVAN) 1 MG tablet Take 1 mg by mouth every 6 hours as needed 10/31/2016 Active acetaminophen (TYLENOL) 500 MG tablet Take 500 mg by mouth every 4 hours as needed for Fever or Pain Maximum allowable Acetaminophen amount = 4 Grams (4000 mg) / 24 hours. Active Active Problems Problem Noted Date Diagnosed Date Elevated liver enzymes 08/18/2017 Obesity 08/18/2017 Hyperlipidemia 08/18/2017 Attention deficit disorder of adult with hyperac tivity 07/18/2009 Hypertension Depression Anxiety Family History Medical History Relation Name Comments Hypertension Sister Relation Name Status Comments Sister Social History Tobacco Use Types Packs/Day Years Used Date Smoking Tobacco: Never Smokeless Tobacco: Never Alcohol Use Standard Drinks/Week Comments Yes 1 (1 standard drink = 0.6 oz pur e alcohol) seldom to rarely Sex and Gender Information Value Date Recorded Sex Assigned at Not on file Gender Identity Not on file Sexual Orientation Not on file Last Filed Vital Signs Vital Sign Reading Time Taken Comments Blood Pressure 125/80 09/30/2017 12:35 PM CDT Pulse 65 09/30/2017 12:35 PM CDT Temperature 36.5 C (97.7 F) 09/30/2017 12:11 PM CDT Respiratory Rate 18 09/30/2017 12:35 PM CDT Oxygen Saturation 100% 09/30/2017 12:35 PM CDT Inhaled Oxygen Concentration - - Weight 83.9 kg (185 lb) 09/30/2017 10:04 AM CDT Height 157.5 cm (5' 2 ) 08/19/2017 8:45 AM CDT Body Mass Index 33.84 08/19/2017 8:45 AM CDT Plan of Treatment Health Maintenance Due Date Last Done Comments LIPID TESTING 1985 MAMMOGRAM 1985 PAP SMEAR 1985 HIV SCREENING 09/24/1998 HEPATITIS C SCREENING 09/20/2001 DTAP/TDAP/TD VACCINES (1 - Tdap) 09/24/2002 HEPATITIS B VACCINE (1 of 3 - 19+ 3-dose series) 09/24/2002 COVID-19 VACCINE (2023-2 5 season) 2023 INFLUENZA VACCINE (#1) 2023 6, 01/10/2009 DEPRESSION SCREENING 04/07/2024 ZOSTER VACCINE (1 of 2) 09/24/2033 HIB VACCINE Aged Out No longer eligi ble based on patient's age to complete this topic HPV VACCINE Aged Out No longer eligi ble based on patient's age to complete this topic MENINGOCOCCAL (Group B) VACCINE SHARED DECISION-MAKING Aged Out No longer eligible based on patient's age to complete this topic MENINGOCOCCAL GROUPS A/C/Y/W VACCINE Aged Out No longer eligible b ased on patient's age to complete this topic PNEUMOCOCCAL VACCINE Aged Out No long er eligible based on patient's age to complete this topic Medical Devices Explanted Type Area Appian Developer Device Identifier Shelf Expiration Date Model / Serial / Lot Stent Pncr 5fr 5cm Pgtl Crv Tpr Radopq Implanted:Qty: 1 on 08/20/2017 by Lavell Benton MD at [facility] Explanted:Qty: 1 on 09/30/2017 by Miriam Dotson MD at [facility] N/A: Pancreas [employer] 06/30/2020 [id number] / / [id number] Stent Biliary Rx 10fr X 9.0cm Implanted:Qty: 1 on 08/20/2017 by Lavell Benton MD at [facility] Explanted:Qty: 1 on 09/30/2017 by Miriam Dotson MD at [facility] N/A: Bile Duct Right Hemisphere Scientific [employer] 07/22/2019 [id number] / / [id number]
--- OUTSIDE RECORDS SUMMARY | 2024-07-01 21:56 | XMS_ITS | Clinical Summary ---
Author Organization [facility] Address [address] [place] [address] Care Team Providers Care Risk Assessment Consultant Name Role Phone John Cardoza MD Primary Care Provider [phone] Allergies Active Allergy Reactions Criticality Noted Date Comments Sulfa Antibiotics Unknown 01/19/2023 Medications citalopram (CELEXA) 40 MG tablet Take 1 tablet (40 mg total) by mouth daily. Active verapamil (CALAN SR) 240 MG ER tablet Take 1 tablet (240 mg total) by mouth daily. 01/09/2023 Active busPIRone (BUSPAR) 5 MG tablet Take 1 tablet (5 mg total) by mouth 2 (two) times daily. 01/10/2023 Active spironolactone-h ydroCHLOROthiazi de (ALDACTAZIDE) 25-25 MG tablet Take 1 tablet by mouth daily. 01/09/2023 Active LORazepam (ATIVAN) 1 MG tablet Take 1 tablet (1 mg total) by mouth every 6 (six) hours as needed. 01/10/2023 Active Social History Tobacco Use Types Packs/Day Years Used Date Smoking Tobacco: Never Smokeless Tobacco: Never Tobacco Cessation:Counseling Given: Not Answered Comments No Sex and Gender Information Value Date Recorded Sex Assigned at Not on file Legal Sex Female 5:45 PM MANAGER HEART FAILURE Gender Identity Not on file Sexual Orientation Not on file Last Filed Vital Signs Vital Sign Reading Time Taken Comments Blood Pressure 145/87 01/19/2023 10:45 AM CDT Pulse 85 01/19/2023 10:45 AM CDT Temperature 35.7 C (96.2 F) 01/19/2023 10:23 AM CDT Respiratory Rate 20 01/19/2023 10:4 5 AM CDT Oxygen Saturation 97% 01/19/2023 10: 45 AM CDT Inhaled Oxygen Concentration - - Weight 103.3 kg (227 lb 12.8 oz) 2022 10:23 AM CDT Height 157.5 cm (5' 2 ) 01/19/2023 10:2 3 AM CDT Body Mass Index 41.67 01/19/2023 10:23 AM CDT Plan of Treatment Health Maintenance Due Date Last Done Comments Annual Physical 09/24/1986 Hepatitis C 09/24/2001 DTaP, Tdap and Td Vaccines (2 - Tdap) 06/13/2010 06/12/2010, 07/10/1998, 12/31/1988, Additional history exists Hepatitis B Vaccines (2 of 3 - 19+ 3-dose series) 07/10/2010 06/12/2010 Mammogram Screening 2023 COVID-19 Vaccine ( season) 2023 Influenza Adult (#1) 2024 01/06/2016, 01/11/20 09 Cervical Cancer Screening Pap Smear (Age 30 to 64) Every 3 Years 05/28/2024 05/28/2021 Cervical Cancer Screening Pap with HPV Testing (Age 30 to 64) Every 5 Years 05/28/2026 05/28/2021 Cervical Cancer Screening with HPV 05/28/2026 HPV Vaccines Aged Out No longer eligi ble based on patient's age to complete this topic Meningococcal B Vaccine Aged Out No l onger eligible based on patient's age to complete this topic Meningococcal Vaccine Aged Out No niels shree eligible based on patient's age to complete this topic Pneumococcal Vaccine: Pediatrics (0 to 5 Years) and At-Risk Patients (6 to 64 Years) Aged Out No longer eligible based on patient's age to complete this topic RSV Immunizations Under 20 Months Aged Out No longer eligible based on patient's age to complete this topic Procedures Procedure Name Priority Date/Time Associated Diagnosis Comments HUMAN PAPILLOMAVIRUS, HIGH-RISK TYPES Routine 05/28/2021 12:00 PM MANAGER HEART FAILURE CYTOPATH CERV/VAG THIN LAYER Routine 05/28/2021 8:06 AM MANAGER HEART FAILURE from Last 3 Months or Most Recently Relevant to Health Maintenance Results * HUMAN PAPILLOMAVIRUS, HIGH-RISK TYPES (05/28/2021 12:00 PM MANAGER HEART FAILURE) SPECIMEN CERVICAL/END OCERVICAL 05/30/2021 9:36 AM MANAGER HEART FAILURE [facility] HPV DNA HIGH RISK NEGATIVE NEGATIVE 05/30/2021 5:25 PM MANAGER HEART FAILURE [facility] Comment:SEE CYTOLOGY REPORT 05/28/2021 12:0 0 PM MANAGER HEART FAILURE us Kapil Cordova MD PATHOLOGY/CYTOLOGY ORDERABLES Fi nal Result [facility] [address] [place] [id number], * Cytopath Cerv/Vag Thin Layer (05/28/2021 8:06 AM MANAGER HEART FAILURE) THIN PREP PAP [address] [id number] Department of Pathology Pathology Report CERVICAL/VAGINAL PAP SMEAR REPORT Name: LORRAINE TRIVEDI Age: 6 1985 (Age: 35) Location: [facility] Sex: F Collected Date: 05/28/2021 [facility] #: [id number] Date Received: 05/30/2021 Date Reported: 06/01/2021 Provider: KAPIL YOUSSEF MD INTERPRETATION CERVICAL/ENDOCERVI EMMANUEL: SATISFACTORY FOR EVALUATION. ENDOCERVICAL/TRANS FORMATION ZONE COMPONENT ABSENT. NEGATIVE FOR INTRAEPITHELIAL LESION OR MALIGNANCY. NEGATIVE FOR HIGH RISK HPV. The FDA approved Aptima HPV assay is an in vitro nucleic acid amplification test for the qualitative detection of E6/E7 viral messenger RNA (mRNA) from 14 high-risk types of human papillomavirus (HPV) in cervical specimens. The high-risk HPV types detected by the assay include: 16,18,31,33,35,39, 45,51,52,56,58,59, 66, and 68. Electronically Signed Out By Lynnette L. 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 It is a screening test. Negative results on combined screening (Pap test and HPV-DNA) have a high negative predictive value (99.1-100 percent) for cervical cancer. The pap test is not effective in detecting cervical adenocarcinoma. [facility] 05/28/2021 8:06 AM MANAGER HEART FAILURE 05/30/2021 8:06 AM MANAGER HEART FAILURE Comment:CERVICAL/ENDOCERVICA L us Kapil Cordova MD PATHOLOGY/CYTOLOGY ORDERABLES Fi nal Result [facility] [address] [place] [address], from Last 3 Months or Most Recently Relevant to Health Maintenance Insurance [facility] Care Teams Risk Assessment Consultant Relationship Specialty Start Date End Date John Cardoza MD [address] [place] [id number] PCP - General INTERNAL MEDICINE 09/11/18
--- OUTSIDE RECORDS SUMMARY | 2024-07-01 21:56 | XMS_ITS ---
Author Organization [facility] Address [address] [place] [address] Phone Care Team Providers Care Executive Pilot Name Role Phone Unavailable Unavailable Unavailable Plan of Treatment Instructions to patient Instructions for patient : B reast Self Exam discussed Last Documented On 0 11:38AM ; [facility] Assessments Includes: Assessments for all patient encounters Findings Encounter Date NORMAL FEMALE EXAM BASTER HAND EXAM with MONTRELL OLSON M.D. 02/27/2010 Last Documented On 0 11:40AM ; [facility] Instructions Includes: Instructions for all patient encounters Instructions to patient Instructions for patient : B reast Self Exam discussed Last Documented On 0 11:38AM ; [facility] Medical Equipment - Implanted Devices Includes: Current and historical Devices No Medical Equipment Recorded Medications Includes: Current and historical Medications Current Medications (continue as prescribed) Mirena (52 MG) 20 MCG/24HR IU IUD 01/22/2008 Provide r: Diagnosis: Last Documented On 05/29/2009 1:41PM By CHIRAG DODD ; [facility] Medications Administered Includes: Administered Medications in patient's chart No Administered Medications Recorded Results Includes: Results from 07/02/2023 through 07/01/2024 No Results Recorded For Specified Dates History of Present Illness History of Present Illness not supported for this document type No History of Present Illness Recorded Social History Description Last Updated Non-smoker 02/27/2010 Last Documented On 0 11:40AM ; [facility] Not using alcohol 02/27/2010 Last Documented On 0 11:40AM ; [facility] Sexually active 02/27/2010 Last Documented On 0 11:40AM ; [facility] Social history unchanged 02/27/2010 Last Documented On 0 11:40AM ; [facility] Daily cola consumption was two cans per day 05/29/2009 Last Documented On 0 1:44PM ; [facility] Marital history 05/29/2009 Last Documented On 0 1:44PM ; [facility] Sexually active with 1 partners in the l ast year 05/29/2009 Last Documented On 0 1:44PM ; [facility] Smoking Status Unknown Procedures and Surgical History Surgical History Last Updated Surgical history unchanged 02/27/2010 Last Documented On 0 11:40AM ; [facility] Medical History Includes: Medical History in patient's chart Description Last Updated Hx of cerebral bleed 5 years ago, 2004 1 04/29/2009 Last Documented On 0 11:40AM ; [facility] No recent change in medical history 02/06 Last Documented On 0 11:40AM ; [facility] LMP: 02/06/2010 02/27/2010 Last Documented On 0 11:40AM ; [facility] Contraception: MIRENA 02/27/2010 Last Documented On 0 11:40AM ; [facility] Last pap smear date 12/29/2008 02/27/2010 Last Documented On 0 11:40AM ; [facility] Para 2 02/27/2010 Last Documented On 0 11:40AM ; [facility] 2 living children 05/29/2009 Last Documented On 0 1:44PM ; [facility] Blood pressure was high 05/29/2009 Last Documented On 0 1:44PM ; [facility] Diabetes 05/29/2009 Last Documented On 0 1:44PM ; [facility] 2 05/29/2009 Last Documented On 0 1:44PM ; [facility] IUD 05/29/2009 Last Documented On 0 1:44PM ; [facility] Family History Includes: Family History in patient's chart Description Last Updated Family history of diabetes mellitus MOM SIDE 02/27/2010 Last Documented On 0 11:40AM ; [facility] Family history of malignant female breas t neoplasm MO SIDE 02/27/2010 Last Documented On 0 11:40AM ; [facility] Family history unchanged 02/27/2010 Last Documented On 0 11:40AM ; [facility] Family history of Cancer 05/29/2009 Last Documented On 0 1:44PM ; [facility] Review of Systems Review of Systems not supported for this document type No Review of Systems Recorded Mental Status No Mental Status Recorded Functional Status No Functional Status Recorded Physical Exam Physical Exam not supported for this document type No Physical Exam Recorded Allergies Includes: Active, inactive, and resolved Allergies No Known Allergies Clinical Notes Includes: Signed Clinical Notes starting from 04/26/2022 No Clinical Notes Recorded
--- OUTSIDE RECORDS SUMMARY | 2024-07-01 21:56 | XMS_ITS | Clinical Summary ---
Author Organization [facility] Address [address] [place] [address] Phone Care Team Providers Care Communications Technician Name Role Phone Unavailable Unavailable Unavailable Reason for Visit and Chief Complaint RE-PAP Plan of Treatment No Plan of Treatment Recorded Assessments Includes: Assessments from this encounter No Assessments Recorded Medical Equipment - Implanted Devices Includes: Current Devices No Medical Equipment Recorded Medications Includes: Medications discussed during this encounter and other current Medications Current Medications (continue as prescribed) Mirena (52 MG) 20 MCG/24HR IU IUD 01/22/2008 Provide r: Diagnosis: Last Documented On 05/29/2009 1:41PM By CHIRAG DODD ; [facility] Medications Administered Includes: Administered Medications from this encounter No Administered Medications Recorded Results Includes: Results discussed during this encounter No Results Recorded For Specified Dates History of Present Illness Includes: History of Present Illness from this encounter No History of Present Illness Recorded Social History No Social History Recorded - Smoking Status Unknown Medical History Includes: Medical History addressed during this encounter No Medical History Recorded Family History Includes: Family History addressed during this encounter No Family History Recorded Review of Systems Includes: Review of Systems from this encounter No Review of Systems Recorded Mental Status Includes: Mental Status from this encounter No Mental Status Recorded Functional Status Includes: Functional Status from this encounter No Functional Status Recorded Physical Exam Includes: Physical Exam from this encounter No Physical Exam Recorded Allergies Includes: Active Allergies No Known Allergies Clinical Notes Includes: Clinical Notes from this encounter No Clinical Notes Recorded
--- OUTSIDE RECORDS SUMMARY | 2024-07-01 21:56 | XMS_ITS | Clinical Summary ---
Author Organization [facility] Address [address] [place] [address] Phone Care Team Providers Care Academic Affairs Director Name Role Phone Unavailable Unavailable Unavailable Reason for Visit and Chief Complaint gynecologic annual exam - The Chief Complaint is: WWE AND PAP Plan of Treatment - OTHER - Last Documented On 02/27/2010 11:40AM ; [facility] Follow-up one year if tests are negative. - Last Documented On 02/27/2010 11:40AM ; [facility] ? ROUTINE BRANCH SERVICE REPRESENTATIVE EXAMINATIONLab: THINPREP-TIS AND HPV - Last Documented On 02/27/2010 11:40AM ; [facility] Pending Tests Order Diagnosis Results Due Ordering P [facility] THINPREP TIS PAP AND HR HPV DNA 03/29/10 MONTRELL OLSON M.D. Last Documented On 0 11:36AM ; [facility] Instructions to patient Instructions for patient : B reast Self Exam discussed Last Documented On 0 11:38AM ; [facility] Assessments Includes: Assessments from this encounter Findings - NORMAL FEMALE EXAM - Last Documented On 02/27/2010 11:40AM ; [facility] Instructions Includes: Instructions from this encounter Instructions to patient Instructions for patient : B reast Self Exam discussed Last Documented On 0 11:38AM ; [facility] Medical Equipment - Implanted Devices Includes: Current Devices No Medical Equipment Recorded Medications Includes: Medications discussed during this encounter and other current Medications Current Medications (continue as prescribed) Mirena (52 MG) 20 MCG/24HR IU IUD 01/22/2008 Provide r: Diagnosis: Last Documented On 05/29/2009 1:41PM By CHIRAG DODD ; [facility] Medications Administered Includes: Administered Medications from this encounter No Administered Medications Recorded Vital Signs Includes: Vital Signs from this encounter Vital Name 02/27/2010 10:30A Blood Pressure Sitting (mmHg) 122/80 Height (in) 62 Weight (lb) 185.5 Body Mass Index (kg/m2) 33.9 Body Surface Area (m2) 1.9 Last Documented: On 02/27/2010 10:42A M ; [facility] Results Includes: Results discussed during this encounter No Results Recorded For Specified Dates History of Present Illness Includes: History of Present Illness from this encounter BUBBA TRIVEDI is a 24 year old female. - Feeling fine. - No abdominal pain. - Menses spotting monthly recently; prior to the last few mos. was having regular cycles despite Mirena IUD - No pelvic pain - No vaginal discharge Social History Description Last Updated Non-smoker 02/27/2010 Last Documented On 0 11:40AM ; [facility] Not using alcohol 02/27/2010 Last Documented On 0 11:40AM ; [facility] Sexually active 02/27/2010 Last Documented On 0 11:40AM ; [facility] Social history unchanged 02/27/2010 Last Documented On 0 11:40AM ; [facility] Daily cola consumption was two cans per day 05/29/2009 Last Documented On 0 10:39AM ; [facility] Marital history 05/29/2009 Last Documented On 0 10:39AM ; [facility] Sexually active with 1 partners in the l ast year 05/29/2009 Last Documented On 0 10:39AM ; [facility] Smoking Status Unknown Procedures and Surgical History Includes: Procedures from this encounter Procedures Code Diagnosis Performing Provider Service L ocation Service Date regular exercise encouraged Last Documented On 0 11:38AM ; [facility] history of abnormal Pap smear of cervix Last Documented On 0 10:44AM ; [facility] Cervical Pap Smear performed and HR HPV with hx; if both are neg., will see in one year [id number] Last Documented On 0 11:39AM ; [facility] Surgical History Last Updated Surgical history unchanged 02/27/2010 Last Documented On 0 11:40AM ; [facility] Medical History Includes: Medical History addressed during this encounter Description Last Updated Hx of cerebral bleed 5 years ago, 2005 1 04/29/2009 Last Documented On 0 11:40AM ; [facility] No recent change in medical history 02/06 Last Documented On 0 11:40AM ; [facility] LMP: 02/06/2010 02/27/2010 Last Documented On 0 11:40AM ; [facility] Contraception: MIRENA 02/27/2010 Last Documented On 0 11:40AM ; [facility] Last pap smear date 12/28/2008 mild dyspl joni 02/27/2010 Last Documented On 0 10:39AM ; [facility] Last pap smear date 12/29/2008 02/27/2010 Last Documented On 0 11:40AM ; [facility] Para 2 02/27/2010 Last Documented On 0 11:40AM ; [facility] 2 living children 05/29/2009 Last Documented On 0 10:39AM ; [facility] Blood pressure was high 05/29/2009 Last Documented On 0 10:39AM ; [facility] Diabetes 05/29/2009 Last Documented On 0 10:39AM ; [facility] 2 05/29/2009 Last Documented On 0 10:39AM ; [facility] IUD 05/29/2009 Last Documented On 0 10:39AM ; [facility] Family History Includes: Family History addressed during this encounter Description Last Updated Family history of diabetes mellitus MOM SIDE 02/27/2010 Last Documented On 0 11:40AM ; [facility] Family history of malignant female breas t neoplasm MO SIDE 02/27/2010 Last Documented On 0 11:40AM ; [facility] Family history unchanged 02/27/2010 Last Documented On 0 11:40AM ; [facility] Family history of Cancer 05/29/2009 Last Documented On 0 10:39AM ; [facility] Review of Systems Includes: Review of Systems from this encounter Systemic: No recent weight change. Head: No headache. Eyes: No vision problems. Otolaryngeal: No hearing loss and no hoarseness. Cardiovascular: No chest pain or discomfort. Pulmonary: No dyspnea. Gastrointestinal: No abdominal pain and no melena. No diarrhea and no constipation. Genitourinary: No dysuria and no stress incontinence. Musculoskeletal: No back pain and no localized joint pain. Neurological: No numbness. Psychological: No depression. Skin: No skin lesions. Mental Status Includes: Mental Status from this encounter No Mental Status Recorded Functional Status Includes: Functional Status from this encounter No Functional Status Recorded Physical Exam Includes: Physical Exam from this encounter Allergies Includes: Active Allergies No Known Allergies Encounters Encounter Provider Location Date Check-In Time Check-Out Time Diagnosis BRANCH SERVICE REPRESENTATIVE EXAM MONTRELL OLSON M.D. [facility] TELEGRAPHIC TYPEWRITER OPERATOR CHIEF 0 10:05AM 11:44AM Normal Female Exam Clinical Notes Includes: Clinical Notes from this encounter No Clinical Notes Recorded
--- OUTSIDE RECORDS SUMMARY | 2024-07-01 21:56 | XMS_ITS | Clinical Summary ---
Author Organization [facility] Address [address] [place] [address] Phone Care Team Providers Care Ob Gyn Physician Assistant Name Role Phone John Cardoza MD Primary Care Provider [phone] Allergies Active Allergy Reactions Criticality Noted Date Comments Sulfamethoxazole-Trimethoprim Rash 2019 Medications citalopram (CELEXA) 40 MG Tablet Take 40 mg by mouth daily. Active fluticasone (FLONASE) 50 MCG/ACT Suspension 1-2 Sprays by Nasal route daily. Use in each nostril as directed. Active cetirizine (ZYRTEC) 10 MG Tablet Take 10 mg by mouth daily. Active verapamil (CALAN,ISOPTIN) 120 MG Tablet Take 120 mg by mouth 3 times daily. Active montelukast (SINGULAIR) 10 MG Tablet Take 10 mg by mouth every evening. Active Active Problems Problem Noted Date Diagnosed Date ZAKIA (obstructive sleep apnea) 05/19/2019 Essential (primary) hypertension 05/19/2019 Allergic rhinitis 05/19/2019 Non morbid obesity 05/19/2019 Hypersomnia 05/19/2019 Social History Tobacco Use Types Packs/Day Years Used Date Smoking Tobacco: Never Smokeless Tobacco: Never Alcohol Use Standard Drinks/Week Comments Never 0 (1 standard drink = 0.6 oz pur e alcohol) AUDIT-C Answer Date Recorded Frequency of Alcohol Consumption Never 05/19/2019 Average Number of Drinks Not on file 020 Frequency of Binge Drinking Not on file 05/08 Comments No Sex and Gender Information Value Date Recorded Sex Assigned at Not on file Legal Sex Female 7:57 PM CDT Gender Identity Not on file Sexual Orientation Not on file Last Filed Vital Signs Vital Sign Reading Time Taken Comments Blood Pressure 122/80 05/19/2019 1:01 PM FULL CHARGE BOOKKEEPER Pulse 67 05/19/2019 1:01 PM FULL CHARGE BOOKKEEPER Temperature 36.7 C (98 F) 05/19/2019 1:01 PM FULL CHARGE BOOKKEEPER Respiratory Rate 18 05/19/2019 1:01 PM FULL CHARGE BOOKKEEPER Oxygen Saturation 98% 05/19/2019 1:01 PM FULL CHARGE BOOKKEEPER Inhaled Oxygen Concentration - - Weight 98.9 kg (218 lb) 05/19/2019 1:01 PM FULL CHARGE BOOKKEEPER Height 157.5 cm (5' 2 ) 05/19/2019 1:01 PM FULL CHARGE BOOKKEEPER Body Mass Index 39.87 05/19/2019 1:01 PM FULL CHARGE BOOKKEEPER Plan of Treatment Health Maintenance Due Date Last Done Comments Hepatitis C Virus (HCV) Screening 1985 TdaP Immunization 1985 Hepatitis B Immunization (2 of 3 - 3-dose series) 08/07/1998 07/10/1998 Influenza Immunization (#1) 2023 01/06/2016 SARS-COV-2 Immunization (3 - 2023- season) 2023 12/27/2020, 12/05/2020 Respiratory Syncytial Virus (RSV) Immunization (Adult) (1 - 1-dose 75+ series) 09/24/2058 DTaP/Tdap/Td Immunization Discontinued 1998, 12/31/1988, 07/02/1985, Additional history exists Meningococcal Immunization (ACWY) Aged Out No longer eligible based on patient's age to complete this topic Pneumococcal Immunization Combined Aged Out No longer eligible based on patient's age to complete this topic Rotavirus Immunization Aged Out No lo nger eligible based on patient's age to complete this topic Insurance MEDICAID [employer] [facility] Care Teams Ob Gyn Physician Assistant Relationship Specialty Start Date End Date John Cardoza MD [address], [place] [id number] PCP - General Internal Medicine 08/07/18
--- OUTSIDE RECORDS SUMMARY | 2024-07-01 21:56 | XMS_ITS | Clinical Summary ---
Author Organization [facility] Address [address] [place] [address] Phone Care Team Providers Care Government Relations Analyst Name Role Phone Unavailable Unavailable Unavailable Reason for Visit and Chief Complaint PAP SMEAR ONLY Plan of Treatment No Plan of Treatment [...] On 05/29/2009 1:41PM By CHIRAG DODD ; [facility] Medications Administered Includes: Administered Medications from this [...] Encounters Encounter Provider Location Date Check-In Time Check- Out Time Diagnosis PAP SMEAR ONLY MONTRELL OLSON M.D. [facility] BRANCH ASSOCIATE 9 1:20PM 3:01PM Clinical Notes Includes: Clinical Notes from this encounter No Clinical Notes Recorded
--- OUTSIDE RECORDS SUMMARY | 2024-07-01 21:56 | XMS_ITS | Clinical Summary ---
Author Organization [facility] Address [address] [place] [address] Phone Care Team Providers Care Scenic Arts Supervisor Name Role Phone Unavailable Unavailable Unavailable Reason for Visit and Chief Complaint CHART UPDATE Plan of Treatment No Plan of Treatment [...] On 05/29/2009 1:41PM By CHIRAG DODD ; [facility] Medications Administered Includes: Administered Medications from this encounter No Administered Medications Recorded Results Includes: Results discussed during this encounter No Results Recorded For Specified Dates History of Present Illness Includes: History of Present Illness from this encounter No History of Present Illness Recorded Social History Description Last Updated Daily cola consumption was two cans per day 05/29/2009 Last Documented On 0 1:44PM ; [facility] Marital history 05/29/2009 Last Documented On 0 1:44PM ; [facility] Sexually active with 1 partners in the l ast year 05/29/2009 Last Documented On 0 1:44PM ; [facility] Smoking Status Unknown Medical History Includes: Medical History addressed during this encounter Description Last Updated 2 living children 05/29/2009 Last Documented On 0 1:44PM ; [facility] Blood pressure was high 05/29/2009 Last Documented On 0 1:44PM ; [facility] Diabetes 05/29/2009 Last Documented On 0 1:44PM ; [facility] 2 05/29/2009 Last Documented On 0 1:44PM ; [facility] IUD 05/29/2009 Last Documented On 0 1:44PM ; [facility] Last pap smear date 12/28/2008 mild dyspl joni 05/29/2009 Last Documented On 0 1:44PM ; [facility] LMP: 12/19/2008 05/29/2009 Last Documented On 0 1:44PM ; [facility] Family History Includes: Family History addressed during this encounter Description Last Updated Family history of Cancer 05/29/2009 Last Documented On 0 1:44PM ; [facility] Review of Systems Includes: Review of [...] Location Date Check-In Time Check-Out Time Diagnosis CHART UPDATE MONTRELL OLSON M.D. [facility] RESEARCH STATISTICIAN 0 1:40PM 11:59PM Clinical Notes Includes: Clinical Notes from this encounter No Clinical Notes Recorded
--- OUTSIDE RECORDS SUMMARY | 2024-07-01 21:56 | XMS_ITS ---
Care Plan - [facility] Created on: July 01, 2024 LORRAINE TRIVEDI : 1985 Sex: Female Author Organization [facility] Address [address] [place] [address] Phone Care Team Providers Care Radiation Therapy Technician Name Role Phone Unavailable Unavailable Unavailable
--- OUTSIDE RECORDS SUMMARY | 2024-07-01 21:56 | XMS_ITS | Clinical Summary ---
Author Organization [facility] Address [address] [place] [id number] Care Team Providers Care Box Stamper Name Role Phone Zak Dela Cruz MD [...] (MDV) 01/10/2009 MMR 06/12/2010 Td, adsorbed 06/12/2010 Surgical History Surgery Date Site/Laterality Comments OTHER SURGICAL HISTORY 2002 : 12 hr labor OTHER SURGICAL HISTORY 2007 : 4 hr labor OTHER SURGICAL HISTORY 2012 : 12 hr labor OTHER SURGICAL HISTORY Filschie clips, tubal CARPAL TUNNEL RELEASE Right Carpal tunnel release OTHER SURGICAL HISTORY Right ulner nerve release LAPAROSCOPIC CHOLECYSTECTOMY 2017 Cholecystectomy, laparoscopic Medical History Medical History Date Comments Hx Other Medical 2002 ; Outc ome: 40 week 7 lb(s) 11 oz Female Hx Other Medical 2007 ; Outc ome: 39 week 9 lb(s) Male Hx Other Medical 02/16/2012 lower abd pain; Comments: ER visit; Laterality: left Hx Other Medical 2012 History of abnormal cervical Papanicolaou smear Abnormal PAP Hx Other Medical tubal ligation Dr. Mcgrath Hx Other Medical sore throat; Co mments: LNP 04/14/2014 - Depression Depression Hypertension Hypertension Anxiety disorder Anxiety Family History Medical History Relation Name Comments Other Brother 3 Alive and well; Other Brother 4 Alive and well; Depression Father Depression; Cancer Maternal Grandmother cancer; /Cancer, unknown; Diabetes Maternal Grandmother Diabete s mellitus; /Diabetes mellitus; Other Mother Alive and well; Arthritis Other 1 Family history of arthritis; Cancer Other 2 Family history of cancer; Diabetes Other 3 Family history of diabetes; Other Other 4 Family history of high blood pressure; Other Other 5 Family history of seizure; Leukemia Paternal Grandmother Leukemi a; Relation Name Status Comments Brother 1 Alive Brother 2 Alive Brother 3 Brother 4 Father Alive Maternal Grandmother Mother Alive Other 1 Other 2 Other 3 Other 4 Other 5 Paternal Grandmother Social History Tobacco Use Types Packs/Day Years Used Date Smoking Tobacco: Never Smokeless Tobacco: Never Alcohol Use Standard Drinks/Week Comments No 0 (1 standard drink = 0.6 oz pur e alcohol) Comments No Sex and Gender Information Value Date Recorded Sex Assigned at Not on file Legal Sex Female 11:56 PM RECYCLER Gender Identity Not on file Sexual Orientation Not on file Obstetrics History Para Term AB IAB SAB Ectopic Multiple Livin g Live Births 3 3 3 Date Outcome GA Total Labor Labor/2nd/3rd Weight Sex Type Anes PTL Kimberly A1 A5 Name Clin Para Para Para Last Filed Vital Signs Vital Sign Reading [...] Not on file Insurance IDPA Care Teams Box Stamper Relationship Specialty Start Date End Date Zak Dela Cruz MD PCP - General 07/05/16
--- OUTSIDE RECORDS SUMMARY | 2024-07-01 21:56 | XMS_ITS | Clinical Summary ---
Author Organization [facility] Address [address] [place] [address] Phone Care Team Providers Care Grades 7 And 8 Visiting Teacher Name Role Phone Unavailable Unavailable Unavailable Reason for Visit and Chief Complaint COLPOSCOPY Plan of Treatment No Plan of Treatment [...] ; [facility] Medications Administered Includes: Administered Medications [...] Location Date Check-In Time Check-Out Time Diagnosis COLPOSCOPY MONTRELL OLSON M.D. [facility] DEVELOPMENT TEAM LEAD 9 10:45AM 11:56AM Clinical Notes Includes: Clinical Notes from this encounter No Clinical Notes Recorded
--- NOTE | 2024-07-01 21:57 | PC.NURSE ---
XRAY NOW BACK AT THE BEDSIDE AFTER DR ALANIS SPOKE WITH GRANDMOTHER
--- NOTE | 2024-07-01 22:06 | ED_ITS ---
HPI - Headache General Chief Complaint: Headache Stated Complaint: HIGH BLOOD PRESSURE Time Seen by Provider: 07/01/24 22:03 Source: patient Mode of arrival: ambulatory Limitations: no limitations History of Present Illness HPI Narrative: This is a 38-year-old female with a history of hypertension recently had her medication adjusted and while at work had a blood pressure reading in the 170s systolic, currently has a headache and no neck stiffness no fever chills no nasal congestion no shortness of breath or chest pain. Blood pressure is stable with some no dysuria no hematuria no frequency. MD elicited complaint: headache Onset (ago): hour(s) Severity: moderate Pain scale (0-10): 8 Quality & Timing: aching and throbbing Related Data Home Medications ?Medication ?Instructions ?Recorded ?Confirmed ?Last Taken ?Type citalopram 40 mg tablet 40 mg PO HS 07/05/20 07/01/24 07/05/20 History verapamil 240 mg tablet,extended 240 mg PO HS 07/05/20 07/05/20 07/05/20 History release buspirone 10 mg tablet mg 07/01/24 Unknown History duloxetine 60 mg capsule,delayed mg PO 07/01/24 Unknown History release spironolactone 25 tablet 07/01/24 Unknown History mg-hydrochlorothiazide 25 mg tablet verapamil 180 mg tablet,extended mg PO 07/01/24 Unknown History release Allergies Allergy/AdvReac Type Severity Reaction Status Date / Time Sulfa (Sulfonamide Allergy Unknown Verified 07/05/20 23:29 Antibiotics) Review of Systems Review of Systems: All systems reviewed & are unremarkable except as noted in HPI and below PMFSH Past Medical History Medical History Hypertension Anxiety Surgical History Surgical History Hx of cholecystectomy H/O tubal ligation History of carpal tunnel surgery bilateral History of bunionectomy bilateral Family History Family History Father Acute myocardial infarction Mother COPD (chronic obstructive pulmonary disease) Social History Social History Smoking status: Never smoker Alcohol intake: unknown Substance use: never Living arrangements: with family Gender identity (if verbalized by the patient): Female Spiritual care concerns: No Exam Const: General: healthy appearing and no acute distress Nutritional Appearance: well nourished Orientation/consciousness: patient oriented x3 HENMT: Head: normal to inspection Eyes: Conjunctivae: conjunctivae normal Pupils: Equal, round and reactive pupils present Neck: Neck: normal visual inspection and no lymphadenopathy Chest: Chest palpation & inspection: normal inspection of the chest Resp: Effort & Inspection: normal respiratory effort Auscultation: clear to auscultation bilaterally Cardio: Rate: regular rate Rhythm: regular rhythm GI: GI Palp: Yes Soft to palpation Auscultation: normal bowel sounds Skin: General skin exam: normal color Rashes: no rashes Neuro: General: patient oriented x3, moves all extremities, no meningeal signs and no focal motor deficits Extrem: General: normal to inspection, no clubbing, cyanosis or edema and no pedal edema Course Course Emergency Course: Blood pressure here in the emergency department is 146/85, for her headache the patient received 60mg IM Toradol and advised to continue her current medication and follow with her primary care physician for elevated blood p ressure. Vital Signs Vital signs: Vital Signs Temperature 37.6 C H 07/01/24 22:09 Pulse Rate 83 07/01/24 22:09 Respiratory Rate 20 07/01/24 22:09 Blood Pressure 146/85 H 07/01/24 22:09 Pulse Oximetry 99 07/01/24 22:09 Oxygen Delivery Room Air 07/01/24 22:09 Temperature 37.6 C H 07/01/24 22:09 Pulse Rate 73 07/01/24 22:38 Respiratory Rate 18 07/01/24 22:38 Blood Pressure 147/96 H 07/01/24 22:38 Pulse Oximetry 96 07/01/24 22:38 Oxygen Delivery Room Air 07/01/24 22:38 Critical Care Time Critical Care Time Critical Care Time: No Discharge Plan Discharge Clinical Impression: Headache, Hypertension Patient Disposition: Home, Self-Care Condition: Stable Instructions: Antibiotic Form, Acute Headache (ED), Hypertension (ED) Additional Instructions: advised to take medication as prescribed and to follow with primary care physician for further evaluation and treatment. Patient Language: Persian Prescriptions: New losartan 50 mg tablet 50 mg PO DAILY Qty: 20 0RF No Action citalopram 40 mg tablet 40 mg PO HS verapamil 240 mg tablet extended release 240 mg PO HS Cepacol Sore Throat (yakov-men) 15-2.3 mg lozenge 1 maxim PO Q4H PRN (Reason: sore throat) Qty: 16 0RF dextromethorphan-guaifenesin 10-100 mg/5 mL syrup 10 ml PO Q6-8H PRN (Reason: cough) Qty: 237 0RF albuterol sulfate 90 mcg/actuation HFA aerosol inhaler 1 inh inhalation Q6H PRN (Reason: shortness of breath or wheezing) Qty: 6.7 0RF spironolacton-hydrochlorothiaz 25-25 mg tablet verapamil 180 mg tablet extended release PO buspirone 10 mg tablet duloxetine 60 mg capsule,delayed release(DR/EC) PO Follow-up/Referrals: John Cardoza MD [Primary Care Provider] - Time of Disposition: 22:32
[2024-07-01 22:09] VITALS: BP 146/85; PULSE 83; RESP 20; TEMP 37.6; O2SAT 99
--- OUTSIDE RECORDS SUMMARY | 2024-07-01 22:14 | XMS_ITS | Clinical Summary ---
Author Organization [facility] Address [address] [place] [address] Phone Care Team Providers Care Carbon Electrodes Supervisor Name Role Phone Unavailable Unavailable Unavailable Reason for Visit and Chief Complaint gynecologic annual exam - The Chief Complaint is: WWE AND PAP Plan of Treatment - OTHER - Last Documented On 02/27/2010 11:40AM ; [facility] Follow-up one year if tests are negative. - Last Documented On 02/27/2010 11:40AM ; [facility] ? 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 Last Documented On 0 11:36AM ; [facility] Instructions to patient Instructions for patient : B reast Self Exam discussed Last Documented On 0 11:38AM ; [facility] Assessments Includes: Assessments from this encounter Findings - NORMAL FEMALE EXAM - Last Documented On 02/27/2010 11:40AM ; [facility] Instructions Includes: Instructions from this encounter Instructions to patient Instructions for patient : B reast Self Exam discussed Last Documented On 0 11:38AM ; [facility] Medical Equipment - Implanted Devices Includes: Current Devices No Medical Equipment Recorded Medications Includes: Medications discussed during this encounter and other current Medications Current Medications (continue as prescribed) Mirena (52 MG) 20 MCG/24HR IU IUD 01/22/2008 Provide r: Diagnosis: Last Documented On 05/29/2009 1:41PM By CHIRAG DODD ; [facility] Medications Administered Includes: Administered Medications from this encounter No Administered Medications Recorded Vital Signs Includes: Vital Signs from this encounter Vital Name 02/27/2010 10:30A Blood Pressure Sitting (mmHg) 122/80 Height (in) 62 Weight (lb) 185.5 Body Mass Index (kg/m2) 33.9 Body Surface Area (m2) 1.9 Last Documented: On 02/27/2010 10:42A M ; [facility] Results Includes: Results discussed during [...] 02/27/2010 Last Documented On 0 11:40AM ; [facility] Not using alcohol 02/27/2010 Last Documented On 0 11:40AM ; [facility] Sexually active 02/27/2010 Last Documented On 0 11:40AM ; [facility] Social history unchanged 02/27/2010 Last Documented On 0 11:40AM ; [facility] Daily cola consumption was two cans per day 05/29/2009 Last Documented On 0 10:39AM ; [facility] Marital history 05/29/2009 Last Documented On 0 10:39AM ; [facility] Sexually active with 1 partners in the l ast year 05/29/2009 Last Documented On 0 10:39AM ; [facility] Smoking Status Unknown Procedures and Surgical History Includes: Procedures from this encounter Procedures Code Diagnosis Performing Provider Service L ocation Service Date regular exercise encouraged Last Documented On 0 11:38AM ; [facility] history of abnormal Pap smear of cervix Last Documented On 0 10:44AM ; [facility] Cervical Pap Smear performed and HR HPV with hx; if both are neg., will see in one year [id number] Last Documented On 0 11:39AM ; [facility] Surgical History Last Updated Surgical history unchanged 02/27/2010 Last Documented On 0 11:40AM ; [facility] Medical History Includes: Medical History addressed during this encounter Description Last Updated Hx of cerebral bleed 5 years ago, 2005 1 04/29/2009 Last Documented On 0 11:40AM ; [facility] No recent change in medical history 02/06 Last Documented On 0 11:40AM ; [facility] LMP: 02/06/2010 02/27/2010 Last Documented On 0 11:40AM ; [facility] Contraception: MIRENA 02/27/2010 Last Documented On 0 11:40AM ; [facility] Last pap smear date 12/28/2008 mild dyspl joni 02/27/2010 Last Documented On 0 10:39AM ; [facility] Last pap smear date 12/29/2008 02/27/2010 Last Documented On 0 11:40AM ; [facility] Para 2 02/27/2010 Last Documented On 0 11:40AM ; [facility] 2 living children 05/29/2009 Last Documented On 0 10:39AM ; [facility] Blood pressure was high 05/29/2009 Last Documented On 0 10:39AM ; [facility] Diabetes 05/29/2009 Last Documented On 0 10:39AM ; [facility] 2 05/29/2009 Last Documented On 0 10:39AM ; [facility] IUD 05/29/2009 Last Documented On 0 10:39AM ; [facility] Family History Includes: Family History addressed during this encounter Description Last Updated Family history of diabetes mellitus MOM SIDE 02/27/2010 Last Documented On 0 11:40AM ; [facility] Family history of malignant female breas t neoplasm MO SIDE 02/27/2010 Last Documented On 0 11:40AM ; [facility] Family history unchanged 02/27/2010 Last Documented On 0 11:40AM ; [facility] Family history of Cancer 05/29/2009 Last Documented On 0 10:39AM ; [facility] Review of Systems Includes: Review [...] Location Date Check-In Time Check-Out Time Diagnosis 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
--- OUTSIDE RECORDS SUMMARY | 2024-07-01 22:14 | XMS_ITS ---
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 02/27/2010 Last Documented On 0 11:40AM ; [facility] Instructions Includes: Instructions for all patient encounters [...] [place] Medications Administered Includes: Administered Medications in patient's chart No Administered Medications Recorded Results Includes: Results from 07/02/2023 through 07/01/2024 No Results Recorded For Specified Dates History of Present Illness History of Present Illness not supported for this document type No History of Present Illness Recorded Social History Description Last Updated Non-smoker 02/27/2010 Last Documented On 0 11:40AM ; [facility] Not using alcohol 02/27/2010 Last Documented On 0 11:40AM ; [facility] Sexually active 02/27/2010 Last Documented On 0 11:40AM ; [facility] Social history unchanged 02/27/2010 Last Documented On 0 11:40AM ; [facility] Daily cola consumption was two cans per day 05/29/2009 Last Documented On 0 1:44PM ; [facility] Marital history 05/29/2009 Last Documented On 0 1:44PM ; [facility] Sexually active with 1 partners in the l ast year 05/29/2009 Last Documented On 0 1:44PM ; [facility] Smoking Status Unknown Procedures and Surgical History Surgical History Last Updated Surgical history unchanged 02/27/2010 Last Documented On 0 11:40AM ; [facility] Medical History Includes: Medical History in patient's chart Description Last Updated Hx of cerebral bleed 5 years ago, 2004 1 04/29/2009 Last Documented On 0 11:40AM ; [facility] No recent change in medical history 02/06 Last Documented On 0 11:40AM ; [facility] LMP: 02/06/2010 02/27/2010 Last Documented On 0 11:40AM ; [facility] Contraception: MIRENA 02/27/2010 Last Documented On 0 11:40AM ; [facility] Last pap smear date 12/29/2008 02/27/2010 Last Documented On 0 11:40AM ; [facility] Para 2 02/27/2010 Last Documented On 0 11:40AM ; [facility] 2 living children 05/29/2009 Last Documented On 0 1:44PM ; [facility] Blood pressure was high 05/29/2009 Last Documented On 0 1:44PM ; [facility] Diabetes 05/29/2009 Last Documented On 0 1:44PM ; [facility] 2 05/29/2009 Last Documented On 0 1:44PM ; [facility] IUD 05/29/2009 Last Documented On 0 1:44PM ; [facility] Family History Includes: Family History in patient's chart Description Last Updated Family history of diabetes mellitus MOM SIDE 02/27/2010 Last Documented On 0 11:40AM ; [facility] Family history of malignant female breas t neoplasm MO SIDE 02/27/2010 Last Documented On 0 11:40AM ; [facility] Family history unchanged 02/27/2010 Last Documented On 0 11:40AM ; [facility] Family history of Cancer 05/29/2009 Last Documented On 0 1:44PM ; [facility] Review of Systems Review of Systems [...]
--- OUTSIDE RECORDS SUMMARY | 2024-07-01 22:14 | XMS_ITS | Clinical Summary ---
Author Organization [facility] Address [address] [place] [address] Phone Care Team Providers Care Financial Management Name Role Phone Unavailable Unavailable Unavailable Reason [...] On 05/29/2009 1:41PM By CHIRAG DODD ; [facility] Medications Administered Includes: Administered Medications [...] Diagnosis PAP SMEAR ONLY MONTRELL OLSON M.D. [facility] FUSE MAKER 9 1:20PM 3:01PM Clinical Notes Includes: Clinical Notes from this encounter No Clinical Notes Recorded
--- OUTSIDE RECORDS SUMMARY | 2024-07-01 22:14 | XMS_ITS | Clinical Summary ---
Author Organization [facility] Address [address] [place] [address] Phone Care Team Providers Care Finished Cloth Examiner Name Role Phone Unavailable Unavailable Unavailable Reason [...] On 05/29/2009 1:41PM By CHIRAG DODD ; [facility] Medications Administered Includes: Administered Medications [...] Check-Out Time Diagnosis COLPOSCOPY MONTRELL OLSON M.D. [facility] HIDE MEASURING MACHINE OPERATOR 9 10:45AM 11:56AM Clinical Notes Includes: Clinical Notes from this encounter No Clinical Notes Recorded
--- OUTSIDE RECORDS SUMMARY | 2024-07-01 22:14 | XMS_ITS | Clinical Summary ---
Author Organization [facility] Address [address] [place] [address] Phone Care Team Providers Care Assistant Passenger Locomotive Engineer Name Role Phone Unavailable Unavailable Unavailable Reason [...] On 05/29/2009 1:41PM By CHIRAG DODD ; [facility] Medications Administered Includes: Administered [...]
--- OUTSIDE RECORDS SUMMARY | 2024-07-01 22:14 | XMS_ITS | Clinical Summary ---
Author Organization [facility] Address [address] [place] [address] Phone Care Team Providers Care Water Commissioner Name Role Phone Unavailable Unavailable Unavailable Reason [...] On 05/29/2009 1:41PM By CHIRAG DODD ; [facility] Medications Administered Includes: Administered Medications [...] 05/29/2009 Last Documented On 0 1:44PM ; [facility] Marital history 05/29/2009 Last Documented On 0 1:44PM ; [facility] Sexually active with 1 partners in the l ast year 05/29/2009 Last Documented On 0 1:44PM ; [facility] Smoking Status Unknown Medical History Includes: Medical History addressed during this encounter Description Last Updated 2 living children 05/29/2009 Last Documented On 0 1:44PM ; [facility] Blood pressure was high 05/29/2009 Last Documented On 0 1:44PM ; [facility] Diabetes 05/29/2009 Last Documented On 0 1:44PM ; [facility] 2 05/29/2009 Last Documented On 0 1:44PM ; [facility] IUD 05/29/2009 Last Documented On 0 1:44PM ; [facility] Last pap smear date 12/28/2008 mild dyspl joni 05/29/2009 Last Documented On 0 1:44PM ; [facility] LMP: 12/19/2008 05/29/2009 Last Documented On 0 1:44PM ; [facility] Family History Includes: Family History addressed during this encounter Description Last Updated Family history of Cancer 05/29/2009 Last Documented On 0 1:44PM ; [facility] Review of Systems Includes: Review [...] Time Diagnosis CHART UPDATE MONTRELL OLSON M.D. [facility] CARPET LOOM FIXER 0 1:40PM 11:59PM Clinical Notes Includes: Clinical Notes from this encounter No Clinical Notes Recorded
--- OUTSIDE RECORDS SUMMARY | 2024-07-01 22:14 | XMS_ITS ---
Care Plan - [facility] Created on: July 01, 2024 LORRAINE TRIVEDI : 1985 Sex: Female Author Organization [facility] Address [address] [place] [address] Phone Care Team Providers Care Gas Combustion Engineer Name Role Phone Unavailable Unavailable Unavailable
[2024-07-01] MEDS: KETOROLAC (*BKC) 60 MG/2 ML VIAL IM (22:18)
[2024-07-01 22:38] VITALS: BP 147/96; PULSE 73; RESP 18; O2SAT 96
== END 2024-07-01 22:38 | disposition home or self-care (01) ==
PROVIDERS: Emergency Provider Emergency Medicine; PCP Internal Medicine
DX: I10 Essential (primary) hypertension (principal); R51.9 Headache, unspecified; Z79.899 Other long term (current) drug therapy
CPT/HCPCS: 96372; 99283; J1885

== ENCOUNTER 2024-10-20 11:02 | Emergency (ER) | payer BC, SELFPAY ==
--- NOTE | ~2024-10-20 | XR_ITS ---
XR abdomen/kub 1V 10/20/2024 11:53 INDICATION: Left flank pain TECHNIQUE: KUB COMPARISON: None FINDINGS: Bowel gas pattern is normal. There are cholecystectomy clips. There is an IUD in the pelvis . There is no evidence of free air, mass, organomegaly, ascites or obstruction. There is a small ston e in the lower pole left kidney. There is a small stone in the left ureter at the L4 level. The bones appear intact. IMPRESSION: 1: Left ureteral and renal stones. Reviewed, dictated and finalized at location B.
[2024-10-20 11:17] VITALS: BP 142/96; PULSE 65; RESP 16; TEMP 36; O2SAT 100
[2024-10-20 11:32] LABS: EDUAAPPEAR Clear; EDUABILI Negative (Negative); EDUABLOOD 3+ (Negative); EDUACOLOR1 Light/Pale; EDUAGLUCOSE Negative (Negative); EDUAKETONE Negative (Negative); EDUALEUKO Negative (Negative); EDUANITRATE Negative (Negative); EDUAPH 7.5; EDUAPROTEIN 1+ (Negative); EDUASPGRAVITY 1.025; EDUAUROBILI 1.0
--- NOTE | 2024-10-20 11:41 | ED.BACK ---
HPI - Back Pain/Injury General Chief Complaint: Back Pain/Injury Stated Complaint: L side and back pain Time Seen by Provider: 10/20/24 11:30 Source: patient and RN notes reviewed Mode of arrival: ambulatory Limitations: no limitations History of Present Illness HPI Narrative: 39-year-old female presents [facility] complaining of left flank pain since this morning. Patient said start her left flank has migrated to left lower abdomen. Patient also reports nausea and vomiting because of the pain. Patient denies any history of kidney stones. Patient denies any urinary symptoms or blood in her urine. Patient denies any diarrhea. Denies any fevers, body aches, chills, chest pain, shortness of breath, or any other symptoms. Related Data Home Medications ?Medication ?Instructions ?Recorded ?Confirmed ?Last Taken ?Type buspirone 10 mg tablet mg 10/20/24 Unknown History duloxetine 30 mg capsule,delayed mg PO 10/20/24 Unknown History release lorazepam 1 mg tablet mg 10/20/24 Unknown History losartan 50 mg tablet mg 10/20/24 Unknown History spironolactone 25 tablet 10/20/24 Unknown History mg-hydrochlorothiazide 25 mg tablet topiramate 25 mg tablet mg 10/20/24 Unknown History topiramate 50 mg tablet mg 10/20/24 Unknown History verapamil 240 mg tablet,extended mg PO 10/20/24 Unknown History release Allergies Allergy/AdvReac Type Severity Reaction Status Date / Time Sulfa (Sulfonamide Allergy Rash Verified 10/20/24 11:17 Antibiotics) Review of Systems Review of Systems: CONSTITUTIONAL: Denies fever, chills, or sweats. EYES: Denies visual changes, redness, or discharge. ENT: Denies rhinorrhea, congestion, sore throat, or otalgia. CARDIOVASCULAR: Denies chest pain, palpitations, or edema. RESPIRATORY: Denies cough or dyspnea. GASTROINTESTINAL: Denies abdominal pain or diarrhea. Positive for nausea and vomiting. GENITOURINARY: Denies dysuria or hematuria. SKIN: Denies rash or itching. MUSCULOSKELETAL: Denies back pain, joint pain, or myalgia. Positive for flank pain. NEUROLOGIC: Denies headache, numbness, or weakness. PSYCHIATRIC: Denies anxiety or depression. All other systems reviewed are negative, except as documented in HPI. PMFSH Comments At the time of my signature, I reviewed and agree with the nursing past medical, surgical, social, and family history. There is no relevant family history pertinent to the patient complaint. Exam Narrative: GENERAL: This is a well-nourished, well-developed adult, in no apparent distress. They are non ill-appearing, nontoxic appearing. HEAD: normocephalic, atraumatic. EYES: Sclera clear/white. Conjunctiva normal. Vision is grossly intact. Extraocular movements intact EARS: External ears normal Hearing grossly intact. NOSE: External nose normal THROAT: Mucous membranes moist, NECK: Neck supple, CARDIOVASCULAR: Regular rate and rhythm without murmurs, gallops, or rubs. RESPIRATORY: Clear to auscultation. Breath sounds equal bilaterally. No wheezes, rales, or rhonchi. GASTROINTESTINAL: Abdomen soft, non-tender, nondistended. Bowel sounds are active. No hepato-splenomegaly, or palpable masses. No guarding or rigidity. SKIN: warm, Dry, intact with no suspicious lesions or rash, good texture and turgor. NEURO: awake, alert, and oriented to person, place and time. There were no obvious focal neurologic abnormalities. EXTREMITIES: No joint tenderness, effusion, or edema noted. BACK: Nontender without deformity. No CVA tenderness. Tenderness to palpation of the left flank region. Course Course Emergency Course: Portions of this record may have been created with voice recognition software Level of Care: Express Care Visit Vital Signs Vital signs: Vital Signs Temperature 96.8 F L 10/20/24 11:17 Pulse Rate 65 10/20/24 11:17 Respiratory Rate 16 10/20/24 11:17 Blood Pressure 142/96 H 10/20/24 11:17 Pulse Oximetry 100 10/20/24 11:17 Temperature 96.8 F L 10/20/24 11:17 Pulse Rate 65 10/20/24 11:17 Respiratory Rate 16 10/20/24 11:17 Blood Pressure 142/96 H 10/20/24 11:17 Pulse Oximetry 100 10/20/24 11:17 Reviewed MDM - Back Pain/Injury MDM Narrative Medical decision making narrative: Patient given Zofran for vomiting. Urine hCG negative. Unable to obtain urine culture due to low urine sample. Patient says she is unable to provide additional sample. Urine dipstick shows 3+ blood and protein in her urine. Patient has no urinary symptoms. Symptoms suggest patient having a kidney stone. KUB x-ray shows to kidney stones, 1 in the left kidney pole, the other in the left ureter near L4. Kidney stones appear small, approximate measurements are 3-4mm. Offered patient ER transfer for further evaluation and management of her kidney stones, and she declined. Patient given a urine strainer. Will refer patient to urology for further evaluation. Patient given a dose of ketorolac and Zofran for pain and nausea vomiting. Patient reports feeling better. Will send a prescription ketorolac for pain, Zofran as needed for nausea and vomiting, and Flomax to facilitate movement of the kidney stone. Strict ER precautions discussed with patient especially if she is unable to urinate, stops making urine, develops urinary symptoms, fevers, worsening pain, severe nausea and vomiting, or any serious concerns this is may be a sign of an obstructing stone or septic stone. Discussed physical exam findings. Advised supportive measures and signs/symptoms to go to the ER. Pt is appropriate for outpt treatment and f/u. Differential Diagnosis Differential diagnosis: Likely renal colic and pyelonephritis Lab Data Attestation: I reviewed the patient's lab results. Labs: Lab Results 10/20/24 10/20/24 Range/Units 11:30 11:38 POC Urine Color Light/pale POC Urine Clarity Clear POC Urine pH 7.5 POC Ur Specif [place] 1.025 POC Urine Protein 1+ (Negative) POC Ur Glucose (UA) Negative (Negative) POC Urine Ketones Negative (Negative) POC Urine Blood 3+ (Negative) POC Urine Nitrite Negative (Negative) POC Urine Bilirubin Negative (Negative) POC Urine Urobilinogen 1.0 POC U Leukocyte Esteras Negative (Negative) POC Urine HCG, Qual Negative (Negative) Imaging Data Radiologist's impression: ITS Impressions Abdomen X-Ray 10/20/24 11:59 IMPRESSION: 1: Left ureteral and renal stones. Critical Care Time Critical Care Time Critical Care Time: No Discharge Plan Discharge Clinical Impression: Kidney stone Patient Disposition: Home Condition: Stable Instructions: Antibiotic Form, Kidney Stones (ED), How to Strain Your Urine (ED) Additional Instructions: Your KUB x-ray shows to kidney stones on the left side. Kidney stone is still in your kidney while the other 1 is in your ureter. They are small and likely will pass on their own. Strain all your urine to collect the kidney stone, the kidney stone can be tested to determine what diet modifications you may need to prevent kidney stones in the future. Please take ketorolac as needed for pain. Do not take any other NSAIDs such as Motrin, ibuprofen, Aleve, Naprosyn, etc. while taking ketorolac. Take Zofran as needed for nausea and vomiting. Take the Flomax as directed to help facilitate the movement of your kidney stones. Take the Flomax at night. Drink plenty of fluids. Follow-up with Urology in 3-5 days for further evaluation management of your kidney stones. If you developed worsening flank pain/abdominal pain, uncontrollable nausea vomiting, fevers, burning with urination, urinary symptoms, unable to urinate, or any other serious concerns please go to the ER immediately. Patient Language: Singaporean Prescriptions: New ketorolac 10 mg tablet 10 mg PO Q6H PRN (Reason: pain) Qty: 20 0RF Rx Instructions: maximum total duration of 5 days from all oral, intranasal, or parenteral formulations tamsulosin [Flomax] 0.4 mg capsule 0.4 mg PO HS 28 Days Qty: 28 0RF ondansetron 4 mg tablet,disintegrating 4 mg PO Q8H PRN (Reason: nausea and vomiting) Qty: 20 0RF No Action losartan 50 mg tablet spironolacton-hydrochlorothiaz 25-25 mg tablet topiramate 25 mg tablet buspirone 10 mg tablet verapamil 240 mg tablet extended release PO lorazepam 1 mg tablet topiramate 50 mg tablet duloxetine 30 mg capsule,delayed release(DR/EC) PO Follow-up/Referrals: Porsha Hunter MD [Physician] - John Cardoza MD [Primary Care Provider] - Stand Alone Forms: Work/School Release IP Time of Disposition: 12:14
[2024-10-20 11:42] LABS: BEDSIDEPREGUCG Negative (Negative)
[2024-10-20] MEDS: ONDANSETRON HCL ODT 4 MG TABLET SUBLINGUAL (11:48)
[2024-10-20] MEDS: KETOROLAC 30 MG/ML VIAL (*BKC) IM (12:05)
== END 2024-10-20 12:20 | disposition home or self-care (01) ==
PROVIDERS: PCP Internal Medicine
DX: N20.0 Calculus of kidney (principal); I10 Essential (primary) hypertension; E78.00 Pure hypercholesterolemia, unspecified
CPT/HCPCS: 74018; 81003; 81025; 96372; 99203; A9270; G0463; J1885

== ENCOUNTER 2025-01-14 13:36 | Outpatient (CLI) | payer BC, SELFPAY ==
--- NOTE | ~2025-01-14 | CT_ITS ---
Exam: CT abdomen and pelvis with contrast Clinical History: [Hematuria. ] Technique: Multiple axial CT images of the abdomen and pelvis were obtained with IV contrast. Sagittal and coronal reformatted images were obtained. FINDINGS: Lung bases: [Small opacities in the lower lungs. ] Liver: [Fatty liver.No mass.] [ No intrahepatic biliary duct dilatation.] Gallbladder: Surgically absent. Common bile duct: [ Normal caliber.] [ No stones.] Spleen: [ Within normal limits.] Pancreas: [ No mass. No pancreatic fluid collection.] Adrenals: [ No masses.] Kidneys: [ No masses. No hydronephrosis.][ There are a few too small to characterize low-attenuation lesions in the kidneys.] No renal calculi. Lymph nodes: [ No adenopathy in the abdomen or pelvis.] Stomach, small bowel and colon: [ No bowel wall thickening or obstruction.] Peritoneum cavity: [ No mesenteric fat stranding or fluid.] Bladder: Mild concentric thickening of the burden of the moderately distended bladder. Differential includes incomplete bladder wall distention versus cystitis. No bladder calculi. Osseous structures: [ No acute fracture or destructive lesion.] [ Multilevel degenerative change in the visualized spine.] Abdominal aorta: [ No aneurysm.] Additional findings: IUD is noted in the uterus. The cervix and vagina are heterogeneous. IMPRESSION: 1. Mild concentric thickening of the burden of the moderately distended bladder. Differential includes incomplete bladder wall distention versus cystitis. 2. The cervix and vagina are heterogeneous. Nonspecific air in the vagina. The findings are nonspecific. Correlate clinically. 3. Cholecystectomy. Reviewed, dictated and finalized at location Q.
[2025-01-14 13:48] LABS: Hematocrit 38.1 % (35.0-49.0); Hemoglobin 12.4 g/dL (12.0-15.0); Mean Corpuscular HGB Conc 32.5 g/dL (32-36); Mean Corpuscular Hemoglobin 27.0 pg (27.0-31.0); Mean Corpuscular Volume 83.0 fL (78.0-102.0); Platelet Count Result 310 K/mm3 (150-420); Red Blood Count 4.59 M/mm3 (4.20-5.40); White Blood Count 10.0 K/mm3 (4.8-10.8)
[2025-01-14 14:39] LABS: Alanine Aminotransferase 39 U/L (6-35); Albumin Level 4.2 g/dL (3.5-5.1); Alkaline Phosphatase 85 U/L (38-126); Anion Gap 7 mmol/L (4-12); Aspartate Amino Transferase 36 U/L (14-36); Bilirubin,Total 1.0 mg/dL (0.2-1.3); Blood Urea Nitrogen 8 mg/dL (7-17); Calcium 9.5 mg/dL (8.4-10.2); Carbon Dioxide 31 mmol/L (22-30); Chloride 102 mmol/L (98-107); Estimated Glomerular Filt Rate > 60; Glucose 105 mg/dL (65-110); Osmolality Calculated 288 mOsm/kg (285-295); Potassium 3.9 mmol/L (3.4-5.0); Sodium 140 mmol/L (137-145); Total Protein 8.8 g/dL (6.3-8.2)
== END 2025-01-14 13:37 | disposition home or self-care (01) ==
LOC: CHSLAB 13:38
PROVIDERS: PCP Internal Medicine; Visit Provider Nurse Practitioner Family
DX: R30.0 Dysuria (principal); R31.9 Hematuria, unspecified; R93.41 Abnormal radiologic findings on diagnostic imaging of renal pelvis, ureter, or bladder; Z90.49 Acquired absence of other specified parts of digestive tract
CPT/HCPCS: 36415; 74177; 80053; 85027; Q9967